=== PATIENT | male | born 1960 | race American Indian/Alaskan Native ===

== ENCOUNTER 2021-10-30 10:13 | Inpatient (IN) | payer MEDICAID ==
--- NOTE | 2021-10-30 11:25 | XRay Report ---
CHEST 1 VIEW 10/30/2021 10:15 AM INDICATION / CLINICAL INFORMATION: Dyspnea. COMPARISON: None available. FINDINGS: SUPPORT DEVICES: None. HEART / MEDIASTINUM: Heart size appears borderline LUNGS / PLEURA: There appear to be a large cavitary lesions in both upper lobes. There is linear scar ring or atelectasis in the mid lungs. The lower lungs are clear. No pleural effusion or pneumothorax. ADDITIONAL FINDINGS: No significant additional findings. IMPRESSION: 1. No acute cardiopulmonary process is appreciated. There appears to be large cavitary lesions in bot h upper lobes as described. The etiology of this is unclear. Consider further evaluation with CT with contrast. Signer Name: Deion Logan Jr, MD Signed: 10/30/2021 11:20 AM Workstation Name: [id number]
[2021-10-30 11:57] LABS: Basophils # (Auto) 0.1 K/mm3 (0.0-0.1); Basophils % (Auto) 0.7 % (0.0-1.8); Eosinophils # (Auto) 0.3 K/mm3 (0.0-0.4); Eosinophils % (Auto) 2.9 % (0.0-4.3); Hematocrit 34.9 % (35.5-45.6); Hemoglobin 11.9 gm/dl (11.8-15.2); Lymphocytes # (Auto) 1.2 K/mm3 (1.2-5.4); Lymphocytes % (Auto) 11.4 % (13.4-35.0); Mean Corpuscular HGB Conc 34 % (32-34); Mean Corpuscular Volume 89 fl (84-94); Monocytes # (Auto) 1.3 K/mm3 (0.0-0.8); Monocytes % (Auto) 11.9 % (0.0-7.3); Red Blood Count 3.94 M/mm3 (3.65-5.03); Red Cell Distribution Width 14.7 % (13.2-15.2)
[2021-10-30 11:59] LABS: Platelet Count 233 K/mm3 (140-440)
[2021-10-30 12:09] LABS: INR 0.97 (0.87-1.13)
[2021-10-30 12:10] LABS: Alanine Aminotransferase 64 units/L (7-56); Albumin 3.6 g/dL (3.9-5); BUN/Creatinine Ratio 14; Blood Urea Nitrogen 15 mg/dL (9-20); Calcium 9.2 mg/dL (8.4-10.2); Hemolysis Index 34
[2021-10-30 13:16] LABS: Creatine Kinase MB < 1.0 ng/mL (0.0-4.0)
[2021-10-30] MEDS ORDERED: cefTRIAXone/NS 1 GM/50 ML 1 GM/50 ML BAG IV ONE (13:35)
[2021-10-30 13:41] LABS: Mucus,Urine FEW /HPF
[2021-10-30 14:01] LABS: Color,Urine Yellow (Yellow)
[2021-10-30 14:02] LABS: Bilirubin,Urine 1+ (Negative); Blood,Urine 1+ (Negative); Ictotest,Urine Negative (Negative)
--- NOTE | 2021-10-30 14:21 | Cat Scan Report ---
CT CHEST WITHOUT CONTRAST INDICATION / CLINICAL INFORMATION: abnormal x ray. TECHNIQUE: Axial CT images were obtained through the chest without contrast. All CT scans at this [facility] ation are performed using CT dose reduction for ALARA by means of automated exposure control. COMPARISON: AP chest performed earlier today FINDINGS: HEART: No significant abnormality. CORONARY ARTERY CALCIFICATION: Present -- Mild. THORACIC AORTA: No significant abnormality. MEDIASTINUM / [place]: There are a few borderline lymph nodes measuring up to 1 cm in short axis in the precarinal region and left hilar region. PLEURA: No pleural effusion. No pneumothorax. LUNGS: CT confirms large cavitary lesions in both upper lobes measuring 9-10 cm in diameter. Upper lo be lung parenchyma is compressed inferiorly. There is no evidence for soft tissue component, internal debris or fluid level. The lower lung zones are adequately aerated with no evidence for acute diseas e, nodule or mass. ADDITIONAL FINDINGS: None. UPPER ABDOMEN: No significant abnormality. SKELETAL SYSTEM: No significant abnormality. IMPRESSION: Large cavitary lesions are identified in both upper lung zones as described. The etiology of these ar e not clearly evident but may be secondary to chronic sequela of previous infectious process such as fungal infection or tuberculosis. Please correlate with the patient's history. No acute inflammatory process is appreciated in the chest. Signer Name: Deion Logan Jr, MD Signed: 10/30/2021 2:17 PM Workstation Name: [id number]
--- NOTE | 2021-10-30 14:50 | Emergency Department Report ---
ED General Adult HPI - General Chief complaint: Upper Respiratory Infection Stated complaint: CHEST PAIN/COUGH PUI?: No Time Seen by Provider: 10/30/21 10:31 Source: patient, EMS Mode of arrival: Stretcher Limitations: No Limitations - History of Present Illness Severity scale (0 -10): 8 - Related Data Allergies Allergy/AdvReac Type Severity Reaction Status Date / Time No Known Allergies Allergy Verified 10/30/21 10:23 ED Review of Systems ROS: Stated complaint: CHEST PAIN/COUGH Other details as noted in HPI Constitutional: denies: chills, fever Eyes: denies: eye pain, eye discharge, vision change ENT: denies: ear pain, throat pain Respiratory: denies: cough, shortness of breath, wheezing Cardiovascular: denies: chest pain, palpitations Endocrine: no symptoms reported Gastrointestinal: denies: abdominal pain, nausea, diarrhea Genitourinary: denies: urgency, dysuria Musculoskeletal: denies: back pain, joint swelling, arthralgia Skin: denies: rash, lesions Neurological: denies: headache, weakness, paresthesias Psychiatric: denies: anxiety, depression Hematological/Lymphatic: denies: easy bleeding, easy bruising ED Past Medical Hx - Past Medical History Previous Medical History?: No Hx Hypertension: No Hx Diabetes: Yes Hx GERD: Yes Hx COPD: Yes Additional medical history: stemi - Surgical History Hx Coronary Stent: Yes - Social History Smoking Status: Former Smoker Substance Use Type: None ED Physical Exam - General Limitations: No Limitations General appearance: alert, in no apparent distress - Head Head exam: Present: atraumatic, normocephalic - Eye Eye exam: Present: normal appearance - ENT ENT exam: Present: mucous membranes moist - Neck Neck exam: Present: normal inspection - Respiratory Respiratory exam: Present: wheezes, decreased breath sounds. Absent: respiratory distress - Cardiovascular Cardiovascular Exam: Present: normal rhythm, tachycardia. Absent: systolic murmur, diastolic murmur, rubs, gallop - GI/Abdominal GI/Abdominal exam: Present: soft, normal bowel sounds - Rectal Rectal exam: Present: deferred - Extremities Exam Extremities exam: Present: normal inspection - Back Exam Back exam: Present: normal inspection - Neurological Exam Neurological exam: Present: alert, oriented X3 - Psychiatric Psychiatric exam: Present: normal affect, normal mood - Skin Skin exam: Present: warm, dry, intact, normal color. Absent: rash ED Course Vital Signs 10/30/21 10/30/21 10/30/21 10:19 10:45 12:48 Temperature 102.6 F H Pulse Rate 116 H 117 H 126 H Respiratory 16 28 H 28 H Rate Blood Pressure 118/74 Blood Pressure 110/64 130/72 128/70 [Left] O2 Sat by Pulse 100 100 Oximetry 10/30/21 14:33 Temperature 100.7 F H Pulse Rate 111 H Respiratory 20 Rate Blood Pressure Blood Pressure 112/70 [Left] O2 Sat by Pulse 100 Oximetry ED Medical Decision Making - Lab Data Result diagrams: 10/30/21 11:31 10/30/21 11:16 - EKG Data -: EKG Interpreted by Me EKG shows normal: sinus rhythm Rate: tachycardia - EKG Data When compared to previous EKG there are: no significant change - Radiology Data Radiology results: report reviewed, image reviewed Critical care attestation.: If time is entered above; I have spent that time in minutes in the direct care of this critically ill patient, excluding procedure time. ED Disposition Clinical Impression: Fever, Pulmonary infection Disposition: 09 ADMITTED INPATIENT Is pt being admited?: Yes Does the pt Need Aspirin: No Condition: Stable Referrals: PRIMARY CARE, [Primary Care Provider] - 3-5 Days
[2021-10-30] MEDS ORDERED: guaiFENesin/CODEINE 100-10MG ORAL LIQD 5 ML PO ONE (18:11)
--- NOTE | 2021-10-30 21:24 | History and Physical Report ---
History of Present Illness Date of examination: 10/30/21 Date of admission: 10/30/2021 Chief complaint: Fever and cough for 2 days History of present illness: 62-year-old with history of diabetes, COPD and GERD and coronary artery disease comes in for fever and cough of 2 days duration. In the emergency room during evaluation patient had bilateral upper pulmonary cavitary lesions. Patient being admitted for bilateral pneumonia and bilateral cavitary lesions and work- up. Shortness of breath present. Cough productive of mucoid sputum. - Past Medical History --Previous Medical History?: No --Hypertension: No --Diabetes: Yes --GERD: Yes --COPD: Yes --Additional medical history: stemi - Surgical History --Coronary Stent: Yes - Social History --Smoking Status: Former Smoker --Substance Use Type: None Review of Systems ROS: Stated complaint: CHEST PAIN/COUGH Other details as noted in HPI Constitutional: denies: chills, fever Eyes: denies: eye pain, eye discharge, vision change ENT: denies: ear pain, throat pain Respiratory: denies: cough, shortness of breath, wheezing Cardiovascular: denies: chest pain, palpitations Endocrine: no symptoms reported Gastrointestinal: denies: abdominal pain, nausea, diarrhea Genitourinary: denies: urgency, dysuria Musculoskeletal: denies: back pain, joint swelling, arthralgia Skin: denies: rash, lesions Neurological: denies: headache, weakness, paresthesias Psychiatric: denies: anxiety, depression Hematological/Lymphatic: denies: easy bleeding, easy bruising Medications and Allergies Allergies Allergy/AdvReac Type Severity Reaction Status Date / Time No Known Allergies Allergy Verified 10/30/21 10:23 Exam - Constitutional Vitals: Temp Pulse Resp BP Pulse Ox 100.2 F H 107 H 19 117/69 100 10/30/21 16:25 10/30/21 18:16 10/30/21 18:16 10/30/21 18:16 10/30/21 18:16 General appearance: Present: no acute distress, well-nourished - EENT Eyes: Present: PERRL ENT: hearing intact, clear oral mucosa - Neck Neck: Present: supple, normal ROM - Respiratory Respiratory effort: normal Respiratory: bilateral: CTA - Cardiovascular Heart rate: 78 Rhythm: regular Heart Sounds: Present: S1 & S2. Absent: rub, click - Extremities Extremities: pulses symmetrical, No edema Peripheral Pulses: within normal limits - Abdominal General gastrointestinal: Present: soft, non-tender, non-distended, normal bowel sounds Male genitourinary: Present: normal - Integumentary Integumentary: Present: clear, warm, dry - Musculoskeletal Musculoskeletal: gait normal, strength equal bilaterally - Psychiatric Psychiatric: appropriate mood/affect, intact judgment & insight - Neurologic Neurologic: CNII-XII intact, moves all extremities HEART Score - HEART Score Troponin: Troponin T < 0.010 ng/mL (0.00-0.029) 10/30/21 11:31 Results - Labs CBC & Chem 7: 10/31/21 04:32 10/31/21 04:32 Labs: Laboratory Last Values WBC 10.9 K/mm3 (4.5-11.0) 10/30/21 11:31 RBC 3.94 M/mm3 (3.65-5.03) 10/30/21 11:31 Hgb 11.9 gm/dl (11.8-15.2) 10/30/21 11:31 Hct 34.9 % (35.5-45.6) L 10/30/21 11:31 MCV 89 fl (84-94) 10/30/21 11:31 MCH 30 pg (28-32) 10/30/21 11:31 MCHC 34 % (32-34) 10/30/21 11:31 RDW 14.7 % (13.2-15.2) 10/30/21 11:31 Plt Count 233 K/mm3 (140-440) 10/30/21 11:31 Lymph % (Auto) 11.4 % (13.4-35.0) L 10/30/21 11:31 [place] % (Auto) 11.9 % (0.0-7.3) H 10/30/21 11:31 Eos % (Auto) 2.9 % (0.0-4.3) 10/30/21 11:31 Baso % (Auto) 0.7 % (0.0-1.8) 10/30/21 11:31 Lymph # (Auto) 1.2 K/mm3 (1.2-5.4) 10/30/21 11:31 [place] # (Auto) 1.3 K/mm3 (0.0-0.8) H 10/30/21 11:31 Eos # (Auto) 0.3 K/mm3 (0.0-0.4) 10/30/21 11:31 Baso # (Auto) 0.1 K/mm3 (0.0-0.1) 10/30/21 11:31 Seg Neutrophils % 73.1 % (40.0-70.0) H 10/30/21 11:31 Seg Neutrophils # 8.0 K/mm3 (1.8-7.7) H 10/30/21 11:31 PT 14.0 Sec. (12.2-14.9) 10/30/21 11:31 INR 0.97 (0.87-1.13) 10/30/21 11:31 Sodium 137 mmol/L (137-145) 10/30/21 11:16 Potassium 4.3 mmol/L (3.6-5.0) 10/30/21 11:16 Chloride 101.3 mmol/L (98-107) 10/30/21 11:16 Carbon Dioxide 23 mmol/L (22-30) 10/30/21 11:16 Anion Gap 17 mmol/L 10/30/21 11:16 BUN 15 mg/dL (9-20) 10/30/21 11:16 Creatinine 1.1 mg/dL (0.8-1.3) 10/30/21 11:16 Estimated GFR > 60 ml/min 10/30/21 11:16 BUN/Creatinine Ratio 14 % 10/30/21 11:16 Glucose 124 mg/dL (75-100) H 10/30/21 11:16 Lactic Acid 0.90 mmol/L (0.7-2.0) 10/30/21 14:43 Calcium 9.2 mg/dL (8.4-10.2) 10/30/21 11:16 Total Bilirubin 0.50 mg/dL (0.1-1.2) 10/30/21 11:16 AST 50 units/L (5-40) H 10/30/21 11:16 ALT 64 units/L (7-56) H 10/30/21 11:16 Alkaline Phosphatase 139 units/L (35-129) H 10/30/21 11:16 Total Creatine Kinase 72 units/L (55-170) 10/30/21 11:31 CK-MB (CK-2) < 1.0 ng/mL (0.0-4.0) 10/30/21 11:31 CK-MB (CK-2) Rel Index 1.3 (0-4) 10/30/21 11:31 Troponin T < 0.010 ng/mL (0.00-0.029) 10/30/21 11:31 Total Protein 7.8 g/dL (6.3-8.2) 10/30/21 11:16 Albumin 3.6 g/dL (3.9-5) L 10/30/21 11:16 Albumin/Globulin Ratio 0.9 % 10/30/21 11:16 Urine Color Yellow (Yellow) 10/30/21 11:18 Urine Turbidity Clear (Clear) 10/30/21 11:18 Urine pH 6.0 (5.0-7.0) 10/30/21 11:18 Ur Specific [place] 1.015 (1.003-1.030) 10/30/21 11:18 Urine Protein 30 mg/dl mg/dL (Negative) 10/30/21 11:18 Urine Glucose (UA) Negative mg/dL (Negative) 10/30/21 11:18 Urine Ketones Negative mg/dL (Negative) 10/30/21 11:18 Urine Blood 1+ (Negative) 10/30/21 11:18 Urine Nitrite 1+ (Negative) 10/30/21 11:18 Ur Reducing Substances Not Reportable 10/30/21 11:18 Urine Bilirubin 1+ (Negative) 10/30/21 11:18 Urine Ictotest Negative (Negative) 10/30/21 11:18 Urine Urobilinogen 0.0 mg/dL (<2.0) 10/30/21 11:18 Ur Leukocyte Esterase Negative (Negative) 10/30/21 11:18 Urine WBC (Auto) 11.0 /HPF (0.0-6.0) H 10/30/21 11:18 Urine RBC (Auto) 2.0 /HPF (0.0-6.0) 10/30/21 11:18 U Epithel Cells (Auto) 3.0 /HPF (0-13.0) 10/30/21 11:18 Urine Mucus Few /HPF 10/30/21 11:18 Microbiology: Microbiology 10/30/21 14:49 Peripheral/Venous Blood Culture - Preliminary Culture in Progress 10/30/21 14:43 Peripheral/Venous Blood Culture - Preliminary Culture in Progress - Imaging and Cardiology Imaging and Cardiology: Chest x-ray Large cavitary lesions in both upper lobes. The etiology of this is unclear. CT of the chest recommended. Chest CT Large cavitary lesions are identified in both upper lung zones as described. The etiology of these are not clearly evident but may be secondary to chronic sequelae of previous infectious process such as fungal infection ocular ecchymosis. Please correlate with the patient's history. No acute intracranial process is appreciated in the chest. Assessment and Plan Advance Directives: Yes (Full code) VTE prophylaxis?: Chemical Plan of care discussed with patient/family: Yes - Patient Problems (1) Bilateral pneumonia Current Visit: Yes Status: Acute Plan to address problem: Patient initiated on IV Zithromax and IV Rocephin Patient has bilateral cavitary lesions TB to be ruled out ID consult requested Sputum for AFB (2) Pulmonary cavitary lesion Current Visit: Yes Status: Acute Plan to address problem: TB and other fungal diseases to be ruled out Patient also has fever ID consult requested Patient to be isolated Sputum for AFB (3) COPD (chronic obstructive pulmonary disease) Current Visit: Yes Status: Chronic Qualifiers: Emphysema type: unspecified Plan to address problem: DuoNebs [id number] and as needed (4) CAD (coronary artery disease) Current Visit: Yes Status: Chronic Qualifiers: Coronary Disease-Associated Artery/Lesion type: red devil artery [place] vs. transplanted heart: red devil heart Plan to address problem: On aspirin and statins (5) GERD (gastroesophageal reflux disease) Current Visit: Yes Status: Chronic Qualifiers: Esophagitis presence: without esophagitis Qualified Code(s): K21.9 - Gastro-esophageal reflux disease without esophagitis Plan to address problem: On PPIs (6) DVT prophylaxis Current Visit: Yes Status: Acute Plan to address problem: On heparin and GI prophylaxis (7) Advance care planning Current Visit: Yes Status: Acute Plan to address problem: Disease education collected, care plan discussed, diagnosis discussed close. Patient acknowledged understanding with care plan. +30 minutes. Patient is full code.
[2021-10-30] MEDS ORDERED: ONDANSETRON 4 MG/2 ML INJ IV PRN (21:31)
[2021-10-30] MEDS ORDERED: ACETAMINOPHEN 325 MG TAB PO PRN (21:31)
[2021-10-30] MEDS ORDERED: MORPHINE 2 MG/1 ML INJ IV PRN (21:33)
[2021-10-30] MEDS ORDERED: IPRATROPIUM/ALBUTEROL SULFATE 3 ML AMPUL.NEB IH PRN (21:34)
[2021-10-30] MEDS ORDERED: ALBUTEROL 2.5 MG/3 ML NEBU IH PRN (21:39)
[2021-10-30] MEDS ORDERED: AZITHROMYCIN/NS 500 MG/250 ML 500 MG/250 ML BAG IV SCH (22:00)
[2021-10-30] MEDS ORDERED: D5W/0.9% NACL 1,000 ML IV SCH (22:00)
[2021-10-30] MEDS: HEPARIN 5,000 UNIT/1 ML VIAL SUB-Q SCH (22:19)
[2021-10-30] MEDS: FAMOTIDINE 20 MG TAB PO SCH (22:20)
[2021-10-31] MEDS: guaiFENesin DM 200/20 MG ORAL LIQD 10 ML PO PRN ×4 (01:54→22:39)
[2021-10-31 05:12] LABS: Hematocrit 33.8 % (35.5-45.6); Hemoglobin 11.1 gm/dl (11.8-15.2); Mean Corpuscular HGB Conc 33 % (32-34); Mean Corpuscular Volume 88 fl (84-94); Platelet Count 265 K/mm3 (140-440); Red Blood Count 3.85 M/mm3 (3.65-5.03); Red Cell Distribution Width 14.8 % (13.2-15.2)
[2021-10-31 05:28] LABS: Alanine Aminotransferase 48 units/L (7-56); Albumin 3.5 g/dL (3.9-5); BUN/Creatinine Ratio 16; Blood Urea Nitrogen 14 mg/dL (9-20); Calcium 8.5 mg/dL (8.4-10.2); Hemolysis Index 2
[2021-10-31 05:52] LABS: Basophils % (Manual) 0 % (0.0-1.8); Total Cells Counted 100
[2021-10-31 05:53] LABS: Platelet Estimate Consistent w Auto
[2021-10-31] MEDS: IPRATROPIUM/ALBUTEROL SULFATE 3 ML AMPUL.NEB IH SCH ×4 (08:22→20:19)
--- NOTE | 2021-10-31 08:56 | Electrocardiograph Report ---
[facility] Test Date: 2021-10-30 Test Time: 12:15:38 Pat Name: JANES ARECHIGA Department: Room: A374 1 Gender: M Vp Home Health: NURSE : 1960 Requested By: KIANNA PRINCE Order Number: [id number] Reading MD: Nash Covarrubias Measurements Intervals [place] Rate: 120 P: 45 NC: 153 QRS: 69 QRSD: 78 T: -56 QT: 288 QTc: 407 Interpretive Statements Sinus tachycardia Borderline T abnormalities, diffuse leads No previous ECG available for comparison Electronically Signed On 10-31-2021 8:55:45 EDT by Nash Covarrubias
[2021-10-31] MEDS: FAMOTIDINE 20 MG TAB PO SCH ×2 (09:31→22:39)
[2021-10-31] MEDS: HEPARIN 5,000 UNIT/1 ML VIAL SUB-Q SCH ×2 (09:31→22:39)
[2021-10-31] MEDS ORDERED: cefTRIAXone/NS 2 GM/100 ML 2 GM/100 ML BAG IV SCH (10:00)
--- NOTE | 2021-10-31 10:05 | Progress Note ---
Assessment and Plan Assessment and plan: -- Bilateral pneumonia/community-acquired POA Patient initiated on IV Zithromax and IV Rocephin Patient has bilateral cavitary lesions ID pulmonary evaluated the patient Patient is placed in airborne isolation AFB cultures, AFB smears, gold interferon Test pending, follow cultures --Pulmonary cavitary lesion TB and other fungal diseases to be ruled out Patient also has fever, ID following Airborne isolation, follow AFB testing --COPD (chronic obstructive pulmonary disease) DuoNebs [id number] and as needed -- History of CAD (coronary artery disease) Continue home cardiac medications On aspirin and statins --GERD (gastroesophageal reflux disease) Continue PPI --Full CODE STATUS -DVT prophylaxis On heparin and GI prophylaxis --Advance care planning Disease education collected, care plan discussed, diagnosis discussed close. Patient acknowledged understanding with care plan. +30 minutes. Patient is full code. Plan of care discussed with the patient, he has many questions Answered all of them History Interval history: I have seen and examined the patient at the bedside Patient's chart and medications reviewed Patient was admitted with pneumonia and cavitary lesion Placed in airborne isolation for AFB testing, ID and pulmonary following Patient complains of some vague chest discomfort and mild shortness of breath Denies nausea vomiting vital signs noted Hospitalist Physical - Constitutional Vitals: Temp Pulse Resp BP Pulse Ox 98.6 F 103 H 20 107/71 96 10/31/21 04:47 10/31/21 08:23 10/31/21 08:23 10/31/21 04:47 10/31/21 08:23 General appearance: Present: no acute distress, well-nourished - EENT Eyes: Present: PERRL, EOM intact - Neck Neck: Present: supple, normal ROM - Respiratory Respiratory effort: normal Respiratory: bilateral: diminished, rhonchi, negative: rales, wheezing - Cardiovascular Rhythm: regular Heart Sounds: Present: S1 & S2 - Extremities Extremities: no ischemia, No edema Peripheral Pulses: within normal limits - Abdominal General gastrointestinal: soft, non-tender, non-distended, normal bowel sounds - Integumentary Integumentary: Present: clear, warm - Psychiatric Psychiatric: appropriate mood/affect, cooperative - Neurologic Neurologic: CNII-XII intact, moves all extremities HEART Score - HEART Score Troponin: Troponin T < 0.010 ng/mL (0.00-0.029) 10/30/21 11:31 Results - Labs CBC & Chem 7: 10/31/21 04:32 10/31/21 04:32 Labs: Laboratory Last Values WBC 7.9 K/mm3 (4.5-11.0) 10/31/21 04:32 RBC 3.85 M/mm3 (3.65-5.03) 10/31/21 04:32 Hgb 11.1 gm/dl (11.8-15.2) L 10/31/21 04:32 Hct 33.8 % (35.5-45.6) L 10/31/21 04:32 MCV 88 fl (84-94) 10/31/21 04:32 MCH 29 pg (28-32) 10/31/21 04:32 MCHC 33 % (32-34) 10/31/21 04:32 RDW 14.8 % (13.2-15.2) 10/31/21 04:32 Plt Count 265 K/mm3 (140-440) 10/31/21 04:32 Lymph % (Auto) 11.4 % (13.4-35.0) L 10/30/21 11:31 [place] % (Auto) Freezing Machine Operator 10/31/21 04:32 Eos % (Auto) 2.9 % (0.0-4.3) 10/30/21 11:31 Baso % (Auto) 0.7 % (0.0-1.8) 10/30/21 11:31 Lymph # (Auto) 1.2 K/mm3 (1.2-5.4) 10/30/21 11:31 [place] # (Auto) 1.3 K/mm3 (0.0-0.8) H 10/30/21 11:31 Eos # (Auto) 0.3 K/mm3 (0.0-0.4) 10/30/21 11:31 Baso # (Auto) 0.1 K/mm3 (0.0-0.1) 10/30/21 11:31 Add Manual Diff Complete 10/31/21 04:32 Total Counted 100 10/31/21 04:32 Seg Neutrophils % 73.1 % (40.0-70.0) H 10/30/21 11:31 Seg Neuts % (Manual) 72.0 % (40.0-70.0) H 10/31/21 04:32 Band Neutrophils % 0 % 10/31/21 04:32 Lymphocytes % (Manual) 15.0 % (13.4-35.0) 10/31/21 04:32 Reactive Lymphs % (Man) 0 % 10/31/21 04:32 Monocytes % (Manual) 12.0 % (0.0-7.3) H 10/31/21 04:32 Eosinophils % (Manual) 1.0 % (0.0-4.3) 10/31/21 04:32 Basophils % (Manual) 0 % (0.0-1.8) 10/31/21 04:32 Metamyelocytes % 0 % 10/31/21 04:32 Myelocytes % 0 % 10/31/21 04:32 Promyelocytes % 0 % 10/31/21 04:32 Blast Cells % 0 % 10/31/21 04:32 Nucleated RBC % Not Reportable 10/31/21 04:32 Seg Neutrophils # 8.0 K/mm3 (1.8-7.7) H 10/30/21 11:31 Seg Neutrophils # Man 5.7 K/mm3 (1.8-7.7) 10/31/21 04:32 Band Neutrophils # 0.0 K/mm3 10/31/21 04:32 Lymphocytes # (Manual) 1.2 K/mm3 (1.2-5.4) 10/31/21 04:32 Abs React Lymphs (Man) 0.0 K/mm3 10/31/21 04:32 Monocytes # (Manual) 0.9 K/mm3 (0.0-0.8) H 10/31/21 04:32 Eosinophils # (Manual) 0.1 K/mm3 (0.0-0.4) 10/31/21 04:32 Basophils # (Manual) 0.0 K/mm3 (0.0-0.1) 10/31/21 04:32 Metamyelocytes # 0.0 K/mm3 10/31/21 04:32 Myelocytes # 0.0 K/mm3 10/31/21 04:32 Promyelocytes # 0.0 K/mm3 10/31/21 04:32 Blast Cells # 0.0 K/mm3 10/31/21 04:32 WBC Morphology Not Reportable 10/31/21 04:32 Hypersegmented Neuts Not Reportable 10/31/21 04:32 Hyposegmented Neuts Not Reportable 10/31/21 04:32 Hypogranular Neuts Not Reportable 10/31/21 04:32 Smudge Cells Not Reportable 10/31/21 04:32 Toxic Granulation Not Reportable 10/31/21 04:32 Toxic Vacuolation Not Reportable 10/31/21 04:32 Dohle Bodies Not Reportable 10/31/21 04:32 Pelger-Huet Anomaly Not Reportable 10/31/21 04:32 Kristian Rods Not Reportable 10/31/21 04:32 Platelet Estimate Consistent w auto 10/31/21 04:32 Clumped Platelets Not Reportable 10/31/21 04:32 Plt Clumps, EDTA Not Reportable 10/31/21 04:32 Large Platelets Not Reportable 10/31/21 04:32 Giant Platelets Not Reportable 10/31/21 04:32 Platelet Satelliting Not Reportable 10/31/21 04:32 Plt Morphology Comment Not Reportable 10/31/21 04:32 RBC Morphology Not Reportable 10/31/21 04:32 Dimorphic RBCs Not Reportable 10/31/21 04:32 Polychromasia Not Reportable 10/31/21 04:32 Hypochromasia Not Reportable 10/31/21 04:32 Poikilocytosis Not Reportable 10/31/21 04:32 Anisocytosis Not Reportable 10/31/21 04:32 Microcytosis Not Reportable 10/31/21 04:32 Macrocytosis Not Reportable 10/31/21 04:32 Spherocytes Not Reportable 10/31/21 04:32 Pappenheimer Bodies Not Reportable 10/31/21 04:32 Sickle Cells Not Reportable 10/31/21 04:32 Target Cells Not Reportable 10/31/21 04:32 Tear Drop Cells Not Reportable 10/31/21 04:32 Ovalocytes Not Reportable 10/31/21 04:32 Helmet Cells Not Reportable 10/31/21 04:32 [place] Bodies Not Reportable 10/31/21 04:32 [place] Rings Not Reportable 10/31/21 04:32 [place] Cells Not Reportable 10/31/21 04:32 Bite Cells Not Reportable 10/31/21 04:32 Crenated Cell Not Reportable 10/31/21 04:32 Elliptocytes Not Reportable 10/31/21 04:32 Acanthocytes (Spur) Not Reportable 10/31/21 04:32 Rouleaux Not Reportable 10/31/21 04:32 Hemoglobin C Crystals Not Reportable 10/31/21 04:32 Schistocytes Not Reportable 10/31/21 04:32 Malaria parasites Not Reportable 10/31/21 04:32 Nic Bodies Not Reportable 10/31/21 04:32 Hem Pathologist Commnt No 10/31/21 04:32 PT 14.0 Sec. (12.2-14.9) 10/30/21 11:31 INR 0.97 (0.87-1.13) 10/30/21 11:31 Sodium 136 mmol/L (137-145) L 10/31/21 04:32 Potassium 4.2 mmol/L (3.6-5.0) 10/31/21 04:32 Chloride 99.5 mmol/L (98-107) 10/31/21 04:32 Carbon Dioxide 22 mmol/L (22-30) 10/31/21 04:32 Anion Gap 19 mmol/L 10/31/21 04:32 BUN 14 mg/dL (9-20) 10/31/21 04:32 Creatinine 0.9 mg/dL (0.8-1.3) 10/31/21 04:32 Estimated GFR > 60 ml/min 10/31/21 04:32 BUN/Creatinine Ratio 16 % 10/31/21 04:32 Glucose 123 mg/dL (75-100) H 10/31/21 04:32 Lactic Acid 0.90 mmol/L (0.7-2.0) 10/30/21 14:43 Calcium 8.5 mg/dL (8.4-10.2) 10/31/21 04:32 Total Bilirubin 0.40 mg/dL (0.1-1.2) 10/31/21 04:32 AST 36 units/L (5-40) 10/31/21 04:32 ALT 48 units/L (7-56) 10/31/21 04:32 Alkaline Phosphatase 138 units/L (35-129) H 10/31/21 04:32 Ammonia 21.0 umol/L (25-60) L 10/30/21 21:49 Total Creatine Kinase 72 units/L (55-170) 10/30/21 11:31 CK-MB (CK-2) < 1.0 ng/mL (0.0-4.0) 10/30/21 11:31 CK-MB (CK-2) Rel Index 1.3 (0-4) 10/30/21 11:31 Troponin T < 0.010 ng/mL (0.00-0.029) 10/30/21 11:31 Total Protein 7.7 g/dL (6.3-8.2) 10/31/21 04:32 Albumin 3.5 g/dL (3.9-5) L 10/31/21 04:32 Albumin/Globulin Ratio 0.8 % 10/31/21 04:32 Urine Color Yellow (Yellow) 10/30/21 11:18 Urine Turbidity Clear (Clear) 10/30/21 11:18 Urine pH 6.0 (5.0-7.0) 10/30/21 11:18 Ur Specific [place] 1.015 (1.003-1.030) 10/30/21 11:18 Urine Protein 30 mg/dl mg/dL (Negative) 10/30/21 11:18 Urine Glucose (UA) Negative mg/dL (Negative) 10/30/21 11:18 Urine Ketones Negative mg/dL (Negative) 10/30/21 11:18 Urine Blood 1+ (Negative) 10/30/21 11:18 Urine Nitrite 1+ (Negative) 10/30/21 11:18 Ur Reducing Substances Not Reportable 10/30/21 11:18 Urine Bilirubin 1+ (Negative) 10/30/21 11:18 Urine Ictotest Negative (Negative) 10/30/21 11:18 Urine Urobilinogen 0.0 mg/dL (<2.0) 10/30/21 11:18 Ur Leukocyte Esterase Negative (Negative) 10/30/21 11:18 Urine WBC (Auto) 11.0 /HPF (0.0-6.0) H 10/30/21 11:18 Urine RBC (Auto) 2.0 /HPF (0.0-6.0) 10/30/21 11:18 U Epithel Cells (Auto) 3.0 /HPF (0-13.0) 10/30/21 11:18 Urine Mucus Few /HPF 10/30/21 11:18 Microbiology: Microbiology 10/30/21 14:49 Peripheral/Venous Blood Culture - Preliminary Culture in Progress 10/30/21 14:43 Peripheral/Venous Blood Culture - Preliminary Culture in Progress Cruz/IV: Voiding Method Urinal Active Medications - Current Medications Current Medications: Generic Name Dose Route Start Last Admin Trade Name Freq PRN Reason Stop Dose Admin Acetaminophen 650 mg 10/30/21 21:31 Acetaminophen 325 Mg Tab PO Q4H PRN Pain MILD(1-3)/Fever >100.5/MCDERMOTT Albuterol 2.5 mg 10/30/21 21:39 10/30/21 23:50 Albuterol 2.5 Mg/3 Ml Nebu IH 2.5 mg Q3HRT PRN Administration Wheezing Albuterol/Ipratropium 1 ampul 10/31/21 08:00 10/31/21 08:22 Ipratropium/Albuterol Sulfate 3 Ml Ampul.Neb IH 1 ampul QIDRT JAYLA Administration Famotidine 20 mg 10/30/21 22:00 10/31/21 09:31 Famotidine 20 Mg Tab PO 20 mg BID JAYLA Administration Guaifenesin 10 ml 10/31/21 01:11 10/31/21 05:44 Guaifenesin Dm 200/20 Mg Oral Liqd 10 Ml PO 10 ml Q4H PRN Administration Cough Heparin Sodium (Porcine) 5,000 unit 10/30/21 22:00 10/31/21 09:31 Heparin 5,000 Unit/1 Ml Vial SUB-Q 5,000 unit Q12HR JAYLA Administration Dextrose/Sodium Chloride 1,000 mls @ 75 mls/hr 10/30/21 22:00 10/31/21 05:45 D5ns IV 10/31/21 11:00 75 mls/hr DIRECT JAYLA Administration Azithromycin 500 mg in 250 mls @ 250 mls/hr 10/30/21 22:00 10/30/21 22:20 Zithromax/Ns IV 250 mls/hr Q24H JAYLA Administration Ceftriaxone Sodium 2 gm in 100 mls @ 200 mls/hr 10/31/21 10:00 10/31/21 09:31 Rocephin/Ns 2 Gm/100 Ml IV 200 mls/hr Q24HR JAYLA Administration Protocol Morphine Sulfate 2 mg 10/30/21 21:33 10/30/21 22:20 Morphine 2 Mg/1 Ml Inj IV 2 mg Q4H PRN Administration Pain, Moderate (4-6) Ondansetron HCl 4 mg 10/30/21 21:31 Ondansetron 4 Mg/2 Ml Inj IV Q8H PRN Nausea And Vomiting Oxycodone/Acetaminophen 1 tab 10/30/21 21:33 Oxycodone /Acetaminophen 5-325mg Tab PO Q6H PRN Pain, Moderate (4-6) Sodium Chloride 10 ml 10/30/21 22:00 10/31/21 09:32 Sodium Chloride 0.9% 10 Ml Flush Syringe IV 10 ml BID JAYLA Administration Sodium Chloride 10 ml 10/30/21 21:31 Sodium Chloride 0.9% 10 Ml Flush Syringe IV PRN PRN LINE FLUSH
--- NOTE | 2021-10-31 10:26 | Consultation ---
History of Present Illness - Reason for Consult Consult date: 10/31/21 b/l cavitary lesions in lungs Requesting physician: BEVERLEY LACY - History of Present Illness The patient is a 61-year-old male with COPD, diabetes, GERD, chronic respiratory failure requiring home oxygen was admitted to the hospital with complaints of fever and cough going on for about 2 days. Upon evaluation in the ER, noted to have a fever, chest x-ray showed bilateral upper lobe cavitary lesions, hence ID was consulted. Cough with copious sputum production. Patient states he usually gets admitted to [facility], his pulmonary doctor is also there. Last hospitalization was about 8 months ago, he knows he has prior lung damage but has never been told he had cavitary lung lesions. He lives in a correction, thinks his previous TB skin tests have been negative. Remote incarceration for a short duration less than 2 weeks, never been homeless. Denies any known exposure to TB. Denies any substance abuse at this time. Quit smoking many years ago. Review of Systems: General: Fever HEENT: no new visual disturbance Respiratory: Cough, chest pain, shortness of breath Cardiovascular: No chest pain, syncope Gastrointestinal: No nausea, vomiting or diarrhea Genitourinary: No dysuria or hematuria Musculoskeletal: No new or worsening neck pain or back pain Neurologic: No headaches, seizures Hematologic: No easy bruising or bleeding Endocrine: No night sweats or acute weight loss Skin: negative for rash, jaundice Psychiatric: No suicidal or homicidal ideation Medications and Allergies Allergies Allergy/AdvReac Type Severity Reaction Status Date / Time No Known Allergies Allergy Verified 10/30/21 10:23 Active Meds: Active Medications Acetaminophen (Acetaminophen 325 Mg Tab) 650 mg PO Q4H PRN PRN Reason: Pain MILD(1-3)/Fever >100.5/MCDERMOTT Albuterol (Albuterol 2.5 Mg/3 Ml Nebu) 2.5 mg IH Q3HRT PRN PRN Reason: Wheezing Last Admin: 10/30/21 23:50 Dose: 2.5 mg Albuterol/Ipratropium (Ipratropium/Albuterol Sulfate 3 Ml Ampul.Neb) 1 ampul IH QIDRT [facility] Last Admin: 10/31/21 08:22 Dose: 1 ampul Famotidine (Famotidine 20 Mg Tab) 20 mg PO BID [facility] Last Admin: 10/31/21 09:31 Dose: 20 mg Guaifenesin (Guaifenesin Dm 200/20 Mg Oral Liqd 10 Ml) 10 ml PO Q4H PRN PRN Reason: Cough Last Admin: 10/31/21 05:44 Dose: 10 ml Heparin Sodium (Porcine) (Heparin 5,000 Unit/1 Ml Vial) 5,000 unit SUB-Q Q12HR [facility] Last Admin: 10/31/21 09:31 Dose: 5,000 unit Dextrose/Sodium Chloride (D5ns) 1,000 mls @ 75 mls/hr IV DIRECT JAYLA Stop: 10/31/21 11:00 Last Admin: 10/31/21 05:45 Dose: 75 mls/hr Azithromycin (Zithromax/Ns) 500 mg in 250 mls @ 250 mls/hr IV Q24H JAYLA Last Admin: 10/30/21 22:20 Dose: 250 mls/hr Ceftriaxone Sodium (Rocephin/Ns 2 Gm/100 Ml) 2 gm in 100 mls @ 200 mls/hr IV Q24HR JAYLA; Protocol Last Admin: 10/31/21 09:31 Dose: 200 mls/hr Morphine Sulfate (Morphine 2 Mg/1 Ml Inj) 2 mg IV Q4H PRN PRN Reason: Pain, Moderate (4-6) Last Admin: 10/30/21 22:20 Dose: 2 mg Ondansetron HCl (Ondansetron 4 Mg/2 Ml Inj) 4 mg IV Q8H PRN PRN Reason: Nausea And Vomiting Oxycodone/Acetaminophen (Oxycodone /Acetaminophen 5-325mg Tab) 1 tab PO Q6H PRN PRN Reason: Pain, Moderate (4-6) Sodium Chloride (Sodium Chloride 0.9% 10 Ml Flush Syringe) 10 ml IV BID [facility] Last Admin: 10/31/21 09:32 Dose: 10 ml Sodium Chloride (Sodium Chloride 0.9% 10 Ml Flush Syringe) 10 ml IV PRN PRN PRN Reason: LINE FLUSH Physical Examination - Physical Exam Narrative exam: Physical Exam: Constitutional: Alert, cooperative. No acute distress Head, Ears, Nose: Normocephalic, atraumatic. External ears, nose normal Eyes: Conjunctivae/corneas clear. No icterus. No ptosis. Neck: Supple, no meningeal signs Cardiovascular: S1, S2 + Respiratory: Good air entry, clear to auscultation bilaterally GI: Soft, non-tender; bowel sounds normal. No peritoneal signs Musculoskeletal: No pedal edema, no cyanosis. Skin: No rash or abscess Hem/Lymphatic: No palpable cervical or supraclavicular nodes. No lymphangitis Psych: Mood ok. Affect normal Neurological: Awake, alert, oriented. No gross abnormality - Constitutional Vitals: Vital Signs Temp Pulse Resp BP Pulse Ox 98.6 F 103 H 20 107/71 96 10/31/21 04:47 10/31/21 08:23 10/31/21 08:23 10/31/21 04:47 10/31/21 08:23 Temperature -Last 24 Hours Temperature 98.6 F Temperature 99.3 F Temperature 100.2 F Temperature 100.7 F Temperature 102.6 F Temperature 102.6 F Results - Labs CBC & Chem 7: 10/31/21 04:32 10/31/21 04:32 Labs: Abnormal lab results 10/30/21 10/30/21 10/30/21 Range/Units 11:16 11:18 11:31 Hgb (11.8-15.2) gm/dl Hct 34.9 L (35.5-45.6) % Lymph % (Auto) 11.4 L (13.4-35.0) % [place] % (Auto) 11.9 H (0.0-7.3) % [place] # (Auto) 1.3 H (0.0-0.8) K/mm3 Seg Neutrophils % 73.1 H (40.0-70.0) % Seg Neuts % (Manual) (40.0-70.0) % Monocytes % (Manual) (0.0-7.3) % Seg Neutrophils # 8.0 H (1.8-7.7) K/mm3 Monocytes # (Manual) (0.0-0.8) K/mm3 Sodium (137-145) mmol/L Glucose 124 H (75-100) mg/dL AST 50 H (5-40) units/L ALT 64 H (7-56) units/L Alkaline Phosphatase 139 H (35-129) units/L Ammonia (25-60) umol/L Albumin 3.6 L (3.9-5) g/dL Urine WBC (Auto) 11.0 H (0.0-6.0) /HPF 10/30/21 10/31/21 10/31/21 Range/Units 21:49 04:32 04:32 Hgb 11.1 L (11.8-15.2) gm/dl Hct 33.8 L (35.5-45.6) % Lymph % (Auto) (13.4-35.0) % [place] % (Auto) (0.0-7.3) % [place] # (Auto) (0.0-0.8) K/mm3 Seg Neutrophils % (40.0-70.0) % Seg Neuts % (Manual) 72.0 H (40.0-70.0) % Monocytes % (Manual) 12.0 H (0.0-7.3) % Seg Neutrophils # (1.8-7.7) K/mm3 Monocytes # (Manual) 0.9 H (0.0-0.8) K/mm3 Sodium 136 L (137-145) mmol/L Glucose 123 H (75-100) mg/dL AST (5-40) units/L ALT (7-56) units/L Alkaline Phosphatase 138 H (35-129) units/L Ammonia 21.0 L (25-60) umol/L Albumin 3.5 L (3.9-5) g/dL Urine WBC (Auto) (0.0-6.0) /HPF - Imaging and Cardiology Chest x-ray: report reviewed, image reviewed (b/l upper lobe cavitary lesion) Assessment and Plan Cultures: 10/30/2021 blood culture: In process A/P: 61-year-old male with COPD, diabetes, GERD, chronic respiratory failure requiring home oxygen was admitted to the hospital with complaints of fever and cough going on for about 2 days: #Bilateral upper lobe cavitary pneumonia: usually gets admitted to [place], his pulmonary doctor is also there. Last hospitalization was about 8 months ago, he knows he has prior lung damage but has never been told he had cavitary lung lesions. He lives in a correction, thinks his previous TB skin tests have been negative. Remote incarceration for a short duration less than 2 weeks, never been homeless. Denies any known exposure to TB. Denies any substance abuse at this time. Quit smoking many years ago. #COPD with chronic respiratory failure, on home oxygen Recs: -Sputum culture STAT -AFB x 3, TB QuantiFERON gold ordered -Empiric cefepime, vancomycin given underlying structural lung disease -Airborne isolation for now Glenn Matson MD, FACP, [facility] ([facility] O: [phone] F: [phone] C: [phone]
[2021-10-31] MEDS ORDERED: VANCOMYCIN 1,000 MG in SODIUM CHLORIDE 0.9% 500 ML 500 ML IV ONE (10:28)
[2021-10-31] MEDS ORDERED: VANCOMYCIN PHARMACY TO DOSE IV SCH (11:00)
[2021-10-31] MEDS ORDERED: VANCOMYCIN 1,500 MG in SODIUM CHLORIDE 0.9% 500 ML 500 ML IV ONE (12:00)
[2021-10-31] MEDS: CEFEPIME/NS 2 GM/100 ML 2 GM/100 ML BAG IV SCH ×2 (13:00→22:39)
[2021-10-31] MEDS: oxyCODONE /ACETAMINOPHEN 5-325MG TAB PO PRN (13:16)
--- NOTE | 2021-10-31 14:08 | Event Note ---
Date: 10/31/21 Chart reviewed. Suggest the following: Obtain [facility] records including imaging. My guess is this is old/chronic given his stability and minimal oxygen requirement. Likely superimposed infection on top of chronic upper lobe lung disease with volume loss on left. Obtain [facility] records from Pulm if possible No objection to abx therapy per ID Sputum sample needs to be obtained before abx administration if possible Agree with isolation.
[2021-11-01] MEDS: VANCOMYCIN 1,250 MG in SODIUM CHLORIDE 0.9% 250ML 250 ML IV SCH ×2 (07:37→18:12)
[2021-11-01] MEDS: IPRATROPIUM/ALBUTEROL SULFATE 3 ML AMPUL.NEB IH SCH ×3 (09:06→19:27)
[2021-11-01] MEDS: CEFEPIME/NS 2 GM/100 ML 2 GM/100 ML BAG IV SCH ×3 (09:15→21:54)
[2021-11-01] MEDS: FAMOTIDINE 20 MG TAB PO SCH ×2 (09:15→21:36)
[2021-11-01] MEDS: guaiFENesin DM 200/20 MG ORAL LIQD 10 ML PO PRN (09:15)
[2021-11-01] MEDS: HEPARIN 5,000 UNIT/1 ML VIAL SUB-Q SCH ×2 (09:15→21:35)
--- NOTE | 2021-11-01 09:19 | Progress Note ---
Assessment and Plan Assessment and plan: Follow kebede PCR test Follow AFP smears, cultures and gold interferon test -- Bilateral pneumonia/community-acquired POA Patient initiated on IV Zithromax and IV Rocephin Patient has bilateral cavitary lesions ID pulmonary evaluated the patient Patient is placed in airborne isolation AFB cultures, AFB smears, gold interferon Test pending, follow cultures --Pulmonary cavitary lesion TB and other fungal diseases to be ruled out Patient also has fever, ID following Airborne isolation, follow AFB testing --COPD (chronic obstructive pulmonary disease) DuoNebs [id number] and as needed --CAD (coronary artery disease) Continue aspirin and statins --GERD (gastroesophageal reflux disease) Continue PPIs --DVT prophylaxis On heparin and GI prophylaxis -- Advance care planning Disease education collected, care plan discussed, diagnosis discussed close. Patient acknowledged understanding with care plan. +30 minutes. Patient is full code. 11/01/2021; patient feels slightly better still has chest congestion and cough Patient is already on cefepime recommended by ID Follow cultures, follow AFB studies reports, follow kebede PCR test Closely monitor the patient and adjust management as needed Plan of care reviewed with the patient and his nurse History Interval history: Seen and examined the patient at the bedside this morning in airborne isolation room Strict contact isolation PPE protocol strictly followed, AFP cultures and smears are pending Patient complains of some cough and shortness of breath as well as nasal congestion Patient requestS cough medicine and nasal spray COVID test was sent Patient is on 3 L of nasal cannula oxygen Vital signs reviewed Hospitalist Physical - Constitutional Vitals: Temp Pulse Resp BP Pulse Ox 99.4 F 94 H 20 111/69 97 11/01/21 05:27 11/01/21 05:27 11/01/21 05:27 11/01/21 05:27 11/01/21 05:27 General appearance: Present: no acute distress, well-nourished - EENT Eyes: Present: PERRL, EOM intact - Neck Neck: Present: supple, normal ROM - Respiratory Respiratory effort: normal Respiratory: bilateral: diminished, negative: rales, rhonchi, wheezing, other - Cardiovascular Rhythm: regular Heart Sounds: Present: S1 & S2 - Extremities Extremities: no ischemia, No edema - Abdominal General gastrointestinal: soft, non-tender, non-distended, normal bowel sounds - Integumentary Integumentary: Present: clear, warm - Psychiatric Psychiatric: appropriate mood/affect, cooperative - Neurologic Neurologic: CNII-XII intact, moves all extremities HEART Score - HEART Score Troponin: Troponin T < 0.010 ng/mL (0.00-0.029) 10/30/21 11:31 Results - Labs CBC & Chem 7: 10/31/21 04:32 10/31/21 04:32 Labs: Laboratory Last Values WBC 7.9 K/mm3 (4.5-11.0) 10/31/21 04:32 RBC 3.85 M/mm3 (3.65-5.03) 10/31/21 04:32 Hgb 11.1 gm/dl (11.8-15.2) L 10/31/21 04:32 Hct 33.8 % (35.5-45.6) L 10/31/21 04:32 MCV 88 fl (84-94) 10/31/21 04:32 MCH 29 pg (28-32) 10/31/21 04:32 MCHC 33 % (32-34) 10/31/21 04:32 RDW 14.8 % (13.2-15.2) 10/31/21 04:32 Plt Count 265 K/mm3 (140-440) 10/31/21 04:32 Lymph % (Auto) 11.4 % (13.4-35.0) L 10/30/21 11:31 [place] % (Auto) [employer]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 10/31/21 04:32 Eos % (Auto) 2.9 % (0.0-4.3) 10/30/21 11:31 Baso % (Auto) 0.7 % (0.0-1.8) 10/30/21 11:31 Lymph # (Auto) 1.2 K/mm3 (1.2-5.4) 10/30/21 11:31 [place] # (Auto) 1.3 K/mm3 (0.0-0.8) H 10/30/21 11:31 Eos # (Auto) 0.3 K/mm3 (0.0-0.4) 10/30/21 11:31 Baso # (Auto) 0.1 K/mm3 (0.0-0.1) 10/30/21 11:31 Add Manual Diff Complete 10/31/21 04:32 Total Counted 100 10/31/21 04:32 Seg Neutrophils % 73.1 % (40.0-70.0) H 10/30/21 11:31 Seg Neuts % (Manual) 72.0 % (40.0-70.0) H 10/31/21 04:32 Band Neutrophils % 0 % 10/31/21 04:32 Lymphocytes % (Manual) 15.0 % (13.4-35.0) 10/31/21 04:32 Reactive Lymphs % (Man) 0 % 10/31/21 04:32 Monocytes % (Manual) 12.0 % (0.0-7.3) H 10/31/21 04:32 Eosinophils % (Manual) 1.0 % (0.0-4.3) 10/31/21 04:32 Basophils % (Manual) 0 % (0.0-1.8) 10/31/21 04:32 Metamyelocytes % 0 % 10/31/21 04:32 Myelocytes % 0 % 10/31/21 04:32 Promyelocytes % 0 % 10/31/21 04:32 Blast Cells % 0 % 10/31/21 04:32 Nucleated RBC % Not Reportable 10/31/21 04:32 Seg Neutrophils # 8.0 K/mm3 (1.8-7.7) H 10/30/21 11:31 Seg Neutrophils # Man 5.7 K/mm3 (1.8-7.7) 10/31/21 04:32 Band Neutrophils # 0.0 K/mm3 10/31/21 04:32 Lymphocytes # (Manual) 1.2 K/mm3 (1.2-5.4) 10/31/21 04:32 Abs React Lymphs (Man) 0.0 K/mm3 10/31/21 04:32 Monocytes # (Manual) 0.9 K/mm3 (0.0-0.8) H 10/31/21 04:32 Eosinophils # (Manual) 0.1 K/mm3 (0.0-0.4) 10/31/21 04:32 Basophils # (Manual) 0.0 K/mm3 (0.0-0.1) 10/31/21 04:32 Metamyelocytes # 0.0 K/mm3 10/31/21 04:32 Myelocytes # 0.0 K/mm3 10/31/21 04:32 Promyelocytes # 0.0 K/mm3 10/31/21 04:32 Blast Cells # 0.0 K/mm3 10/31/21 04:32 WBC Morphology Not Reportable 10/31/21 04:32 Hypersegmented Neuts Not Reportable 10/31/21 04:32 Hyposegmented Neuts Not Reportable 10/31/21 04:32 Hypogranular Neuts Not Reportable 10/31/21 04:32 Smudge Cells Not Reportable 10/31/21 04:32 Toxic Granulation Not Reportable 10/31/21 04:32 Toxic Vacuolation Not Reportable 10/31/21 04:32 Dohle Bodies Not Reportable 10/31/21 04:32 Pelger-Huet Anomaly Not Reportable 10/31/21 04:32 Kristian Rods Not Reportable 10/31/21 04:32 Platelet Estimate Consistent w auto 10/31/21 04:32 Clumped Platelets Not Reportable 10/31/21 04:32 Plt Clumps, EDTA Not Reportable 10/31/21 04:32 Large Platelets Not Reportable 10/31/21 04:32 Giant Platelets Not Reportable 10/31/21 04:32 Platelet Satelliting Not Reportable 10/31/21 04:32 Plt Morphology Comment Not Reportable 10/31/21 04:32 RBC Morphology Not Reportable 10/31/21 04:32 Dimorphic RBCs Not Reportable 10/31/21 04:32 Polychromasia Not Reportable 10/31/21 04:32 Hypochromasia Not Reportable 10/31/21 04:32 Poikilocytosis Not Reportable 10/31/21 04:32 Anisocytosis Not Reportable 10/31/21 04:32 Microcytosis Not Reportable 10/31/21 04:32 Macrocytosis Not Reportable 10/31/21 04:32 Spherocytes Not Reportable 10/31/21 04:32 Pappenheimer Bodies Not Reportable 10/31/21 04:32 Sickle Cells Not Reportable 10/31/21 04:32 Target Cells Not Reportable 10/31/21 04:32 Tear Drop Cells Not Reportable 10/31/21 04:32 Ovalocytes Not Reportable 10/31/21 04:32 Helmet Cells Not Reportable 10/31/21 04:32 [place] Bodies Not Reportable 10/31/21 04:32 Rewey Rings Not Reportable 10/31/21 04:32 Demar Cells Not Reportable 10/31/21 04:32 Bite Cells Not Reportable 10/31/21 04:32 Crenated Cell Not Reportable 10/31/21 04:32 Elliptocytes Not Reportable 10/31/21 04:32 Acanthocytes (Spur) Not Reportable 10/31/21 04:32 Rouleaux Not Reportable 10/31/21 04:32 Hemoglobin C Crystals Not Reportable 10/31/21 04:32 Schistocytes Not Reportable 10/31/21 04:32 Malaria parasites Not Reportable 10/31/21 04:32 Nic Bodies Not Reportable 10/31/21 04:32 Hem Pathologist Commnt No 10/31/21 04:32 PT 14.0 Sec. (12.2-14.9) 10/30/21 11:31 INR 0.97 (0.87-1.13) 10/30/21 11:31 Sodium 136 mmol/L (137-145) L 10/31/21 04:32 Potassium 4.2 mmol/L (3.6-5.0) 10/31/21 04:32 Chloride 99.5 mmol/L (98-107) 10/31/21 04:32 Carbon Dioxide 22 mmol/L (22-30) 10/31/21 04:32 Anion Gap 19 mmol/L 10/31/21 04:32 BUN 14 mg/dL (9-20) 10/31/21 04:32 Creatinine 0.9 mg/dL (0.8-1.3) 10/31/21 04:32 Estimated GFR > 60 ml/min 10/31/21 04:32 BUN/Creatinine Ratio 16 % 10/31/21 04:32 Glucose 123 mg/dL (75-100) H 10/31/21 04:32 POC Glucose 126 mg/dL (70-105) H 11/01/21 07:28 Lactic Acid 0.90 mmol/L (0.7-2.0) 10/30/21 14:43 Calcium 8.5 mg/dL (8.4-10.2) 10/31/21 04:32 Total Bilirubin 0.40 mg/dL (0.1-1.2) 10/31/21 04:32 AST 36 units/L (5-40) 10/31/21 04:32 ALT 48 units/L (7-56) 10/31/21 04:32 Alkaline Phosphatase 138 units/L (35-129) H 10/31/21 04:32 Ammonia 21.0 umol/L (25-60) L 10/30/21 21:49 Total Creatine Kinase 72 units/L (55-170) 10/30/21 11:31 CK-MB (CK-2) < 1.0 ng/mL (0.0-4.0) 10/30/21 11:31 CK-MB (CK-2) Rel Index 1.3 (0-4) 10/30/21 11:31 Troponin T < 0.010 ng/mL (0.00-0.029) 10/30/21 11:31 Total Protein 7.7 g/dL (6.3-8.2) 10/31/21 04:32 Albumin 3.5 g/dL (3.9-5) L 10/31/21 04:32 Albumin/Globulin Ratio 0.8 % 10/31/21 04:32 Urine Color Yellow (Yellow) 10/30/21 11:18 Urine Turbidity Clear (Clear) 10/30/21 11:18 Urine pH 6.0 (5.0-7.0) 10/30/21 11:18 Ur Specific [place] 1.015 (1.003-1.030) 10/30/21 11:18 Urine Protein 30 mg/dl mg/dL (Negative) 10/30/21 11:18 Urine Glucose (UA) Negative mg/dL (Negative) 10/30/21 11:18 Urine Ketones Negative mg/dL (Negative) 10/30/21 11:18 Urine Blood 1+ (Negative) 10/30/21 11:18 Urine Nitrite 1+ (Negative) 10/30/21 11:18 Ur Reducing Substances Not Reportable 10/30/21 11:18 Urine Bilirubin 1+ (Negative) 10/30/21 11:18 Urine Ictotest Negative (Negative) 10/30/21 11:18 Urine Urobilinogen 0.0 mg/dL (<2.0) 10/30/21 11:18 Ur Leukocyte Esterase Negative (Negative) 10/30/21 11:18 Urine WBC (Auto) 11.0 /HPF (0.0-6.0) H 10/30/21 11:18 Urine RBC (Auto) 2.0 /HPF (0.0-6.0) 10/30/21 11:18 U Epithel Cells (Auto) 3.0 /HPF (0-13.0) 10/30/21 11:18 Urine Mucus Few /HPF 10/30/21 11:18 Microbiology: Microbiology 10/30/21 14:49 Peripheral/Venous Blood Culture - Preliminary NO GROWTH AFTER 24 HOURS 10/30/21 14:43 Peripheral/Venous Blood Culture - Preliminary NO GROWTH AFTER 24 HOURS 10/30/21 11:18 Urine,Clean Catch Urine Culture - Preliminary Cruz/IV: Voiding Method Urinal Active Medications - Current Medications Current Medications: Generic Name Dose Route Start Last Admin Trade Name Freq PRN Reason Stop Dose Admin Acetaminophen 650 mg 10/30/21 21:31 Acetaminophen 325 Mg Tab PO Q4H PRN Pain MILD(1-3)/Fever >100.5/MCDERMOTT Albuterol 2.5 mg 10/30/21 21:39 10/30/21 23:50 Albuterol 2.5 Mg/3 Ml Nebu IH 2.5 mg Q3HRT PRN Administration Wheezing Albuterol/Ipratropium 1 ampul 10/31/21 08:00 11/01/21 09:06 Ipratropium/Albuterol Sulfate 3 Ml Ampul.Neb IH 1 ampul QIDRT JAYLA Administration Famotidine 20 mg 10/30/21 22:00 10/31/21 22:39 Famotidine 20 Mg Tab PO 20 mg BID JAYLA Administration Guaifenesin 10 ml 10/31/21 01:11 10/31/21 22:39 Guaifenesin Dm 200/20 Mg Oral Liqd 10 Ml PO 10 ml Q4H PRN Administration Cough Heparin Sodium (Porcine) 5,000 unit 10/30/21 22:00 10/31/21 22:39 Heparin 5,000 Unit/1 Ml Vial SUB-Q 5,000 unit Q12HR JAYLA Administration Cefepime HCl 2 gm in 100 mls @ 200 mls/hr 10/31/21 11:00 10/31/21 23:11 Cefepime/Ns 2 Gm/100 Ml IV Infused Q12HR JAYLA Infusion Protocol Vancomycin HCl 1,250 mg/ 275 mls @ 166.667 mls/hr 11/01/21 06:00 11/01/21 07:37 Sodium Chloride IV 166.667 mls/hr Q12H JAYLA Administration Morphine Sulfate 2 mg 10/30/21 21:33 10/30/21 22:20 Morphine 2 Mg/1 Ml Inj IV 2 mg Q4H PRN Administration Pain, Moderate (4-6) Ondansetron HCl 4 mg 10/30/21 21:31 Ondansetron 4 Mg/2 Ml Inj IV Q8H PRN Nausea And Vomiting Oxycodone/Acetaminophen 1 tab 10/30/21 21:33 10/31/21 13:16 Oxycodone /Acetaminophen 5-325mg Tab PO 1 tab Q6H PRN Administration Pain, Moderate (4-6) Sodium Chloride 10 ml 10/30/21 22:00 11/01/21 07:37 Sodium Chloride 0.9% 10 Ml Flush Syringe IV 10 ml BID JAYLA Administration Sodium Chloride 10 ml 10/30/21 21:31 Sodium Chloride 0.9% 10 Ml Flush Syringe IV PRN PRN LINE FLUSH Nutrition/Malnutrition Assess - Dietary Evaluation Nutrition/Malnutrition Findings: Nutrition Notes Start: 10/31/21 13:18 Freq: Status: Active Protocol: Document 10/31/21 13:18 SALENA (Rec: 10/31/21 13:38 SALENA [id number]) Nutrition Notes Need for Assessment generated from: functional support analyst,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 Current Diet Regular Diet (since B 10/31). Labs/Tests 10/31: Na 136, Glu 123. Pertinent Medications 10/31: Nutritionally unremarkable. 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 Weight Status Appropriate Subjective/Other Information RD consult for skin risk and risk of malnutrition assessments. Pt is on PO diet, No reports on Pt's PO intake of meals at the time, will assess at F/U. Pt is on Nasal Cannula, O2 saturation @ 98%, according to Physical Assessment History notes. Pt shows no signs of concern for skin risk at the time, according to Physical Assessment History notes. Pt shous no signs of concern for risk of malnutrition at the time, according to Physical Assessment History notes. Percent of energy/protein needs met: Prescribed Regular Diet provides for energy/protein needs (2,289 Kcal/89 g) during LOS. Burn Absent Trauma Absent GI Symptoms None Food Allergy No Skin Integrity/Comment Assessment WNL. Minimum of two criteria No Fluid Accumulation N/A Reduced Quantitative Researcher Strength N/A (non-severe) Protein-Calorie Malnutrition N\A #1 Nutrition Diagnosis No nutrition diagnosis at this time Is patient on ventilator? No Is Patient Ambulatory and/or Out of Bed Yes REE-([facility]-ambulatory/OOB) [ 2034.669 [id number]] Calculation Used for Recommendations [facility] Additional Notes Protein: 08-1 g/Kg ABW; 59-74 g/day. Fluids: 1 ml/Kcal, or as per MD. Nutrition Intervention Change Diet Order: Continue Regular Diet as tolerated. Follow-Up By: 11/07/21 Additional Comments Continue monitoring food tolerance, %PO intake of meals , and BM.
[2021-11-01] MEDS ORDERED: ALBUTEROL 2.5 MG/3 ML NEBU IH PRN (09:28)
[2021-11-01] MEDS ORDERED: FLUTICASONE PROPIONATE NASAL SPRAY 16 GM NS PRN (14:56)
[2021-11-01] MEDS ORDERED: REMDESIVIR 200 MG in SODIUM CHLORIDE 0.9% 250ML 250 ML IV ONE (15:00)
[2021-11-01] MEDS ORDERED: dexAMETHasone 4 MG/ML VIAL IV ONE (16:00)
[2021-11-01 17:10] LABS: Alanine Aminotransferase 74 units/L (7-56); Albumin 3.1 g/dL (3.9-5); BUN/Creatinine Ratio 9; Blood Urea Nitrogen 7 mg/dL (9-20); Hemolysis Index 57
[2021-11-01] MEDS: guaiFENesin/CODEINE 100-10MG ORAL LIQD 5 ML PO PRN ×2 (18:12→22:15)
[2021-11-01] MEDS: oxyCODONE /ACETAMINOPHEN 5-325MG TAB PO PRN (18:12)
[2021-11-01] MEDS: ARFORMOTEROL 15 MCG/2 ML NEBU IH SCH (19:27)
[2021-11-01] MEDS: BUDESONIDE 0.5 MG/2 ML NEBU IH SCH (19:27)
[2021-11-02] MEDS: VANCOMYCIN 1,250 MG in SODIUM CHLORIDE 0.9% 250ML 250 ML IV SCH ×2 (05:17→18:04)
[2021-11-02] MEDS ORDERED: ALBUTEROL 8.5 GM MDI INHALATION IH PRN (08:00)
[2021-11-02] MEDS: BUDESONIDE 0.5 MG/2 ML NEBU IH SCH ×2 (08:34→20:31)
[2021-11-02] MEDS: ARFORMOTEROL 15 MCG/2 ML NEBU IH SCH ×2 (08:34→20:32)
[2021-11-02 09:25] LABS: Alanine Aminotransferase 75 units/L (7-56); Albumin 3.3 g/dL (3.9-5); Blood Urea Nitrogen 9 mg/dL (9-20); Calcium 8.8 mg/dL (8.4-10.2); Hemolysis Index 0
[2021-11-02 09:26] LABS: BUN/Creatinine Ratio 13
[2021-11-02] MEDS: CEFEPIME/NS 2 GM/100 ML 2 GM/100 ML BAG IV SCH ×2 (11:33→22:10)
[2021-11-02] MEDS: guaiFENesin/CODEINE 100-10MG ORAL LIQD 5 ML PO PRN ×2 (11:33→22:11)
[2021-11-02] MEDS: oxyCODONE /ACETAMINOPHEN 5-325MG TAB PO PRN (11:33)
[2021-11-02] MEDS: FAMOTIDINE 20 MG TAB PO SCH ×2 (11:34→22:10)
[2021-11-02] MEDS: HEPARIN 5,000 UNIT/1 ML VIAL SUB-Q SCH ×2 (11:34→22:10)
[2021-11-02] MEDS: dexAMETHasone 4 MG/ML VIAL IV SCH (11:42)
--- NOTE | 2021-11-02 12:05 | Progress Note ---
Assessment and Plan Assessment and plan: -COVID-19 positive; 11/01/2021 Patient's kebede PCR test came back + 11/02/2019 Isolation precautions PPE protocols followed Inflammatory markers, dexamethasone Hypoxia; patient is on 3 L of nasal cannula oxygen Candidate for dexamethasone for 10 days, remdesivir for 5 days Wean oxygen as tolerated Home O2 evaluation prior to discharge Isolation precautions and PPE protocols per CDC guidelines ID already following - Bilateral pneumonia/community-acquired POA Patient initiated on IV Zithromax and IV Rocephin Patient has bilateral cavitary lesions ID pulmonary evaluated the patient Patient is placed in airborne isolation AFB cultures, AFB smears, gold interferon Test pending, follow cultures --Pulmonary cavitary lesion TB and other fungal diseases to be ruled out Patient also has fever, ID following Airborne isolation, follow AFB testing --COPD (chronic obstructive pulmonary disease) DuoNebs [id number] and as needed --CAD (coronary artery disease) Continue aspirin and statins --GERD (gastroesophageal reflux disease) Continue PPIs --DVT prophylaxis On heparin and GI prophylaxis -- Advance care planning Disease education collected, care plan discussed, diagnosis discussed close. Patient acknowledged understanding with care plan. +30 minutes. Patient is full code. 11/01/2021; patient feels slightly better still has chest congestion and cough Patient is already on cefepime recommended by ID Follow cultures, follow AFB studies reports, follow kebede PCR test 11/02; continue current management, follow pending AFB tests Closely monitor the patient and adjust management as needed Plan of care reviewed with the patient and his nurse History Interval history: I have seen and examined the patient at the bedside in isolation room Patient's chart and medications reviewed She feels slightly better today cough significantly improved Vital signs noted Hospitalist Physical - Constitutional Vitals: Temp Pulse Resp BP Pulse Ox 99.4 F 92 H 20 111/67 96 11/01/21 05:27 11/02/21 08:34 11/02/21 08:34 11/02/21 05:10 11/02/21 08:35 General appearance: Present: no acute distress, well-nourished - EENT Eyes: Present: PERRL, EOM intact - Neck Neck: Present: supple, normal ROM - Respiratory Respiratory effort: normal Respiratory: bilateral: diminished, rhonchi, negative: rales, wheezing - Cardiovascular Rhythm: regular Heart Sounds: Present: S1 & S2 - Extremities Extremities: no ischemia, No edema - Abdominal General gastrointestinal: soft, non-tender, non-distended, normal bowel sounds - Integumentary Integumentary: Present: clear, warm - Psychiatric Psychiatric: appropriate mood/affect, cooperative - Neurologic Neurologic: moves all extremities HEART Score - HEART Score Troponin: Troponin T < 0.010 ng/mL (0.00-0.029) 10/30/21 11:31 Results - Labs CBC & Chem 7: 10/31/21 04:32 11/02/21 07:10 Labs: Laboratory Last Values WBC 7.9 K/mm3 (4.5-11.0) 10/31/21 04:32 RBC 3.85 M/mm3 (3.65-5.03) 10/31/21 04:32 Hgb 11.1 gm/dl (11.8-15.2) L 10/31/21 04:32 Hct 33.8 % (35.5-45.6) L 10/31/21 04:32 MCV 88 fl (84-94) 10/31/21 04:32 MCH 29 pg (28-32) 10/31/21 04:32 MCHC 33 % (32-34) 10/31/21 04:32 RDW 14.8 % (13.2-15.2) 10/31/21 04:32 Plt Count 265 K/mm3 (140-440) 10/31/21 04:32 Lymph % (Auto) 11.4 % (13.4-35.0) L 10/30/21 11:31 Todd % (Auto) General Cleaner 10/31/21 04:32 Eos % (Auto) 2.9 % (0.0-4.3) 10/30/21 11:31 Baso % (Auto) 0.7 % (0.0-1.8) 10/30/21 11:31 Lymph # (Auto) 1.2 K/mm3 (1.2-5.4) 10/30/21 11:31 Todd # (Auto) 1.3 K/mm3 (0.0-0.8) H 10/30/21 11:31 Eos # (Auto) 0.3 K/mm3 (0.0-0.4) 10/30/21 11:31 Baso # (Auto) 0.1 K/mm3 (0.0-0.1) 10/30/21 11:31 Add Manual Diff Complete 10/31/21 04:32 Total Counted 100 10/31/21 04:32 Seg Neutrophils % 73.1 % (40.0-70.0) H 10/30/21 11:31 Seg Neuts % (Manual) 72.0 % (40.0-70.0) H 10/31/21 04:32 Band Neutrophils % 0 % 10/31/21 04:32 Lymphocytes % (Manual) 15.0 % (13.4-35.0) 10/31/21 04:32 Reactive Lymphs % (Man) 0 % 10/31/21 04:32 Monocytes % (Manual) 12.0 % (0.0-7.3) H 10/31/21 04:32 Eosinophils % (Manual) 1.0 % (0.0-4.3) 10/31/21 04:32 Basophils % (Manual) 0 % (0.0-1.8) 10/31/21 04:32 Metamyelocytes % 0 % 10/31/21 04:32 Myelocytes % 0 % 10/31/21 04:32 Promyelocytes % 0 % 10/31/21 04:32 Blast Cells % 0 % 10/31/21 04:32 Nucleated RBC % Not Reportable 10/31/21 04:32 Seg Neutrophils # 8.0 K/mm3 (1.8-7.7) H 10/30/21 11:31 Seg Neutrophils # Man 5.7 K/mm3 (1.8-7.7) 10/31/21 04:32 Band Neutrophils # 0.0 K/mm3 10/31/21 04:32 Lymphocytes # (Manual) 1.2 K/mm3 (1.2-5.4) 10/31/21 04:32 Abs React Lymphs (Man) 0.0 K/mm3 10/31/21 04:32 Monocytes # (Manual) 0.9 K/mm3 (0.0-0.8) H 10/31/21 04:32 Eosinophils # (Manual) 0.1 K/mm3 (0.0-0.4) 10/31/21 04:32 Basophils # (Manual) 0.0 K/mm3 (0.0-0.1) 10/31/21 04:32 Metamyelocytes # 0.0 K/mm3 10/31/21 04:32 Myelocytes # 0.0 K/mm3 10/31/21 04:32 Promyelocytes # 0.0 K/mm3 10/31/21 04:32 Blast Cells # 0.0 K/mm3 10/31/21 04:32 WBC Morphology Not Reportable 10/31/21 04:32 Hypersegmented Neuts Not Reportable 10/31/21 04:32 Hyposegmented Neuts Not Reportable 10/31/21 04:32 Hypogranular Neuts Not Reportable 10/31/21 04:32 Smudge Cells Not Reportable 10/31/21 04:32 Toxic Granulation Not Reportable 10/31/21 04:32 Toxic Vacuolation Not Reportable 10/31/21 04:32 Dohle Bodies Not Reportable 10/31/21 04:32 Pelger-Huet Anomaly Not Reportable 10/31/21 04:32 Kristian Rods Not Reportable 10/31/21 04:32 Platelet Estimate Consistent w auto 10/31/21 04:32 Clumped Platelets Not Reportable 10/31/21 04:32 Plt Clumps, EDTA Not Reportable 10/31/21 04:32 Large Platelets Not Reportable 10/31/21 04:32 Giant Platelets Not Reportable 10/31/21 04:32 Platelet Satelliting Not Reportable 10/31/21 04:32 Plt Morphology Comment Not Reportable 10/31/21 04:32 RBC Morphology Not Reportable 10/31/21 04:32 Dimorphic RBCs Not Reportable 10/31/21 04:32 Polychromasia Not Reportable 10/31/21 04:32 Hypochromasia Not Reportable 10/31/21 04:32 Poikilocytosis Not Reportable 10/31/21 04:32 Anisocytosis Not Reportable 10/31/21 04:32 Microcytosis Not Reportable 10/31/21 04:32 Macrocytosis Not Reportable 10/31/21 04:32 Spherocytes Not Reportable 10/31/21 04:32 Pappenheimer Bodies Not Reportable 10/31/21 04:32 Sickle Cells Not Reportable 10/31/21 04:32 Target Cells Not Reportable 10/31/21 04:32 Tear Drop Cells Not Reportable 10/31/21 04:32 Ovalocytes Not Reportable 10/31/21 04:32 Helmet Cells Not Reportable 10/31/21 04:32 [place] Bodies Not Reportable 10/31/21 04:32 [place] Rings Not Reportable 10/31/21 04:32 Demar Cells Not Reportable 10/31/21 04:32 Bite Cells Not Reportable 10/31/21 04:32 Crenated Cell Not Reportable 10/31/21 04:32 Elliptocytes Not Reportable 10/31/21 04:32 Acanthocytes (Spur) Not Reportable 10/31/21 04:32 Rouleaux Not Reportable 10/31/21 04:32 Hemoglobin C Crystals Not Reportable 10/31/21 04:32 Schistocytes Not Reportable 10/31/21 04:32 Malaria parasites Not Reportable 10/31/21 04:32 Nic Bodies Not Reportable 10/31/21 04:32 Hem Pathologist Commnt No 10/31/21 04:32 PT 14.0 Sec. (12.2-14.9) 10/30/21 11:31 INR 0.97 (0.87-1.13) 10/30/21 11:31 D-Dimer 1159.97 ng/mlDDU (0-234) H 11/02/21 07:40 Sodium 139 mmol/L (137-145) 11/02/21 07:10 Potassium 5.1 mmol/L (3.6-5.0) H 11/02/21 07:10 Chloride 106.7 mmol/L (98-107) 11/02/21 07:10 Carbon Dioxide 18 mmol/L (22-30) L 11/02/21 07:10 Anion Gap 19 mmol/L 11/02/21 07:10 BUN 9 mg/dL (9-20) 11/02/21 07:10 Creatinine 0.7 mg/dL (0.8-1.3) L 11/02/21 07:10 Estimated GFR > 60 ml/min 11/02/21 07:10 BUN/Creatinine Ratio 13 % 11/02/21 07:10 Glucose 183 mg/dL (75-100) H 11/02/21 07:10 POC Glucose 180 mg/dL (70-105) H 11/02/21 11:35 Lactic Acid 0.90 mmol/L (0.7-2.0) 10/30/21 14:43 Calcium 8.8 mg/dL (8.4-10.2) 11/02/21 07:10 Ferritin 538.6 ng/mL (30.0-300.0) H 11/02/21 07:10 Total Bilirubin 0.20 mg/dL (0.1-1.2) 11/02/21 07:10 AST 63 units/L (5-40) H 11/02/21 07:10 ALT 75 units/L (7-56) H 11/02/21 07:10 Alkaline Phosphatase 187 units/L (35-129) H 11/02/21 07:10 Ammonia 21.0 umol/L (25-60) L 10/30/21 21:49 Total Creatine Kinase 72 units/L (55-170) 10/30/21 11:31 CK-MB (CK-2) < 1.0 ng/mL (0.0-4.0) 10/30/21 11:31 CK-MB (CK-2) Rel Index 1.3 (0-4) 10/30/21 11:31 Troponin T < 0.010 ng/mL (0.00-0.029) 10/30/21 11:31 Total Protein 7.8 g/dL (6.3-8.2) 11/02/21 07:10 Albumin 3.3 g/dL (3.9-5) L 11/02/21 07:10 Albumin/Globulin Ratio 0.7 % 11/02/21 07:10 Urine Color Yellow (Yellow) 10/30/21 11:18 Urine Turbidity Clear (Clear) 10/30/21 11:18 Urine pH 6.0 (5.0-7.0) 10/30/21 11:18 Ur Specific [place] 1.015 (1.003-1.030) 10/30/21 11:18 Urine Protein 30 mg/dl mg/dL (Negative) 10/30/21 11:18 Urine Glucose (UA) Negative mg/dL (Negative) 10/30/21 11:18 Urine Ketones Negative mg/dL (Negative) 10/30/21 11:18 Urine Blood 1+ (Negative) 10/30/21 11:18 Urine Nitrite 1+ (Negative) 10/30/21 11:18 Ur Reducing Substances Not Reportable 10/30/21 11:18 Urine Bilirubin 1+ (Negative) 10/30/21 11:18 Urine Ictotest Negative (Negative) 10/30/21 11:18 Urine Urobilinogen 0.0 mg/dL (<2.0) 10/30/21 11:18 Ur Leukocyte Esterase Negative (Negative) 10/30/21 11:18 Urine WBC (Auto) 11.0 /HPF (0.0-6.0) H 10/30/21 11:18 Urine RBC (Auto) 2.0 /HPF (0.0-6.0) 10/30/21 11:18 U Epithel Cells (Auto) 3.0 /HPF (0-13.0) 10/30/21 11:18 Urine Mucus Few /HPF 10/30/21 11:18 Coronavirus (PCR) Positive (Negative) A 11/01/21 09:20 Microbiology: Microbiology 10/30/21 14:49 Peripheral/Venous Blood Culture - Preliminary NO GROWTH AFTER 48 HOURS 10/30/21 14:43 Peripheral/Venous Blood Culture - Preliminary NO GROWTH AFTER 48 HOURS 10/30/21 11:18 Urine,Clean Catch Urine Culture - Final Cruz/IV: Voiding Method Urinal Active Medications - Current Medications Current Medications: Generic Name Dose Route Start Last Admin Trade Name Freq PRN Reason Stop Dose Admin Acetaminophen 650 mg 10/30/21 21:31 Acetaminophen 325 Mg Tab PO Q4H PRN Pain MILD(1-3)/Fever >100.5/MCDERMOTT Albuterol 2 puff 11/02/21 08:00 Albuterol 8.5 Gm Mdi Inhalation IH Q6HRT PRN Shortness Of Breath Arformoterol Tartrate 15 mcg 11/01/21 20:00 11/02/21 08:34 Arformoterol 15 Mcg/2 Ml Nebu IH 15 mcg Q12HRT JAYLA Administration Budesonide 0.5 mg 11/01/21 20:00 11/02/21 08:34 Budesonide 0.5 Mg/2 Ml Nebu IH 0.5 mg Q12HRT JAYLA Administration Dexamethasone 6 mg 11/02/21 11:00 11/02/21 11:42 Dexamethasone 4 Mg/Ml Vial IV 11/10/21 10:01 6 mg DAILY JAYLA Administration Famotidine 20 mg 10/30/21 22:00 11/02/21 11:34 Famotidine 20 Mg Tab PO 20 mg BID JAYLA Administration Fluticasone Propionate 100 mcg 11/01/21 14:56 11/01/21 18:13 Fluticasone Propionate Nasal [place] 16 Gm NS 100 mcg QDAY PRN Administration Congestion Heparin Sodium (Porcine) 5,000 unit 10/30/21 22:00 11/02/21 11:34 Heparin 5,000 Unit/1 Ml Vial SUB-Q 5,000 unit Q12HR JAYLA Administration Cefepime HCl 2 gm in 100 mls @ 200 mls/hr 10/31/21 11:00 11/02/21 11:33 Cefepime/Ns 2 Gm/100 Ml IV 200 mls/hr Q12HR JAYLA Administration Protocol Vancomycin HCl 1,250 mg/ 275 mls @ 166.667 mls/hr 11/01/21 06:00 11/02/21 05:17 Sodium Chloride IV 166.667 mls/hr Q12H JAYLA Administration Remdesivir 100 mg/ Sodium 250 mls @ 500 mls/hr 11/02/21 14:00 Chloride IV 11/05/21 14:29 Q24HR@1400 [facility] Morphine Sulfate 2 mg 10/30/21 21:33 10/30/21 22:20 Morphine 2 Mg/1 Ml Inj IV 2 mg Q4H PRN Administration Pain, Moderate (4-6) Ondansetron HCl 4 mg 10/30/21 21:31 Ondansetron 4 Mg/2 Ml Inj IV Q8H PRN Nausea And Vomiting Oxycodone/Acetaminophen 1 tab 10/30/21 21:33 11/02/21 11:33 Oxycodone /Acetaminophen 5-325mg Tab PO 1 tab Q6H PRN Administration Pain, Moderate (4-6) Pseudoephedrine/Acetam/Chlorphenir 10 ml 11/01/21 14:56 11/02/21 11:33 Guaifenesin/Codeine 100-10mg Oral Liqd 5 Ml PO 10 ml Q4H PRN Administration Cough Sodium Chloride 10 ml 10/30/21 22:00 11/02/21 11:34 Sodium Chloride 0.9% 10 Ml Flush Syringe IV 10 ml BID JAYLA Administration Sodium Chloride 10 ml 10/30/21 21:31 Sodium Chloride 0.9% 10 Ml Flush Syringe IV PRN PRN LINE FLUSH Nutrition/Malnutrition Assess - Dietary Evaluation Nutrition/Malnutrition Findings: Nutrition Notes Start: 10/31/21 13:18 Freq: Status: Active Protocol: Document 10/31/21 13:18 SALENA (Rec: 10/31/21 13:38 SALENA [id number]) Nutrition Notes 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 Current Diet Regular Diet (since B 10/31). Labs/Tests 10/31: Na 136, Glu 123. Pertinent Medications 10/31: Nutritionally unremarkable. 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 Weight Status Appropriate Subjective/Other Information RD consult for skin risk and risk of malnutrition assessments. Pt is on PO diet, No reports on Pt's PO intake of meals at the time, will assess at F/U. Pt is on Nasal Cannula, O2 saturation @ 98%, according to Physical Assessment History notes. Pt shows no signs of concern for skin risk at the time, according to Physical Assessment History notes. Pt shous no signs of concern for risk of malnutrition at the time, according to Physical Assessment History notes. Percent of energy/protein needs met: Prescribed Regular Diet provides for energy/protein needs (2,289 Kcal/89 g) during LOS. Burn Absent Trauma Absent GI Symptoms None Food Allergy No Skin Integrity/Comment Assessment WNL. Minimum of two criteria No Fluid Accumulation N/A Reduced Crime Lab Analyst Strength N/A (non-severe) Protein-Calorie Malnutrition N\A #1 Nutrition Diagnosis No nutrition diagnosis at this time Is patient on ventilator? No Is Patient Ambulatory and/or Out of Bed Yes REE-([facility]-ambulatory/OOB) [ 2034.669 NUTR.MSJOOB] Calculation Used for Recommendations [facility] Additional Notes Protein: 08-1 g/Kg ABW; 59-74 g/day. Fluids: 1 ml/Kcal, or as per MD. Nutrition Intervention Change Diet Order: Continue Regular Diet as tolerated. Follow-Up By: 11/07/21 Additional Comments Continue monitoring food tolerance, %PO intake of meals , and BM.
[2021-11-02] MEDS: IPRATROPIUM/ALBUTEROL SULFATE 3 ML AMPUL.NEB IH SCH ×2 (13:29→20:31)
--- NOTE | 2021-11-02 13:39 | Event Note ---
Date: 11/02/21 received records from [place]. These lesions in the upper lobes have been present at least since 2020 based on the documentation that we have. 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 There have been plans to admit patient for prison IV abx to irridicate it but not sure why this has been done. He is followed by pulmonary at [place] and was referred to Dr. Abram Ibarra who is an expert in bronchiectasis. he has chronic respiratory failure and is on about 2.5-3 liters at home. Patient also has a history of PE in June. I left the most pertinent of notes on the top for anyone else who would like to review. At this time, from a pulmonary standpoint, I do not feel that intervention is needed from us. He should follow back up with [facility] jemima.
[2021-11-02] MEDS: REMDESIVIR 100 MG in SODIUM CHLORIDE 0.9% 250ML 250 ML IV SCH (15:58)
[2021-11-02] MEDS: INSULIN LISPRO 100 UNIT/ML SUB-Q SCH (22:10)
[2021-11-03] MEDS: oxyCODONE /ACETAMINOPHEN 5-325MG TAB PO PRN (00:57)
[2021-11-03] MEDS: VANCOMYCIN 1,250 MG in SODIUM CHLORIDE 0.9% 250ML 250 ML IV SCH ×2 (06:08→19:35)
[2021-11-03] MEDS: INSULIN LISPRO 100 UNIT/ML SUB-Q SCH ×5 (07:30→22:18)
[2021-11-03 08:26] LABS: Alanine Aminotransferase 56 units/L (7-56); Albumin 3.3 g/dL (3.9-5); Blood Urea Nitrogen 13 mg/dL (9-20); Calcium 8.4 mg/dL (8.4-10.2); Hemolysis Index 0
[2021-11-03 08:46] LABS: BUN/Creatinine Ratio 19
[2021-11-03] MEDS: ARFORMOTEROL 15 MCG/2 ML NEBU IH SCH ×2 (08:53→20:23)
[2021-11-03] MEDS: IPRATROPIUM/ALBUTEROL SULFATE 3 ML AMPUL.NEB IH SCH ×3 (08:53→20:23)
[2021-11-03] MEDS: BUDESONIDE 0.5 MG/2 ML NEBU IH SCH ×2 (08:53→20:23)
[2021-11-03] MEDS: guaiFENesin/CODEINE 100-10MG ORAL LIQD 5 ML PO PRN ×2 (10:32→21:51)
[2021-11-03] MEDS: FAMOTIDINE 20 MG TAB PO SCH ×2 (10:33→21:51)
[2021-11-03] MEDS: CEFEPIME/NS 2 GM/100 ML 2 GM/100 ML BAG IV SCH ×2 (10:33→21:53)
[2021-11-03] MEDS: dexAMETHasone 4 MG/ML VIAL IV SCH (10:33)
[2021-11-03] MEDS: HEPARIN 5,000 UNIT/1 ML VIAL SUB-Q SCH ×2 (10:34→21:51)
--- NOTE | 2021-11-03 10:38 | Progress Note ---
Assessment and Plan Cultures: 10/30/2021 blood culture: No growth 11/01/2021 sputum culture: GNR 11/01/2021 COVID-19 PCR: Positive A/P: 61-year-old male with COPD, diabetes, GERD, chronic respiratory failure requiring home oxygen was admitted to the hospital with complaints of fever and cough going on for about 2 days: #Bilateral upper lobe cavitary pneumonia: Reviewed outside records from [place]. Agree with Dr. 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 He should follow up with his physicians at [place] and [place] including Dr. Ibarra who is an expert in bronchiectasis. In my opinion, given his significant structural lung disease and chronic colonization, eradiation of Pseudomonas is going to be very difficult and unlikely. Mainstay will be secretion clearance techniques to help reduce bioburden and help manage his symptoms. He is currently not septic, appears to be clinically stable. Continue to treat for COVID-19 and COPD. #COPD with chronic respiratory failure, on home oxygen Recs: -Reviewed outside records from [place]. Agree with Dr. 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 He should follow up with his physicians at [place] and [place] including Dr. Ibarra who is an expert in bronchiectasis. In my opinion, given his significant structural lung disease and chronic colonization, eradiation of Pseudomonas is going to be very difficult and unlikely. Mainstay will be secretion clearance techniques to help reduce bioburden and help manage his symptoms. He is currently not septic, appears to be clinically stable. Continue to treat for COVID-19 and COPD. -Continue cefepime and vancomycin for now -Continue IV Remdesivir for 5 days -Continue Decadron -Follow-up CRP, procalcitonin -TB isolation not required. Continue isolation for COVID-19 Glenn Matson MD, FACP, [facility] O: [phone] F: [phone] C: [phone] Subjective Date of service: 11/03/21 Interval history: Reports feeling slightly better, but not back to baseline. On oxygen by [place]. stable. Objective - Exam Narrative Exam: Physical Exam: Constitutional: Alert, cooperative. No acute distress Head, Ears, Nose: Normocephalic, atraumatic. External ears, nose normal Eyes: Conjunctivae/corneas clear. No icterus. No ptosis. Neck: Supple, no meningeal signs Cardiovascular: S1, S2 + Respiratory: AE fair b/l GI: Soft, non-tender; bowel sounds normal. No peritoneal signs Musculoskeletal: No pedal edema, no cyanosis. Skin: No rash or abscess Hem/Lymphatic: No palpable cervical or supraclavicular nodes. No lymphangitis Psych: Mood ok. Affect normal Neurological: Awake, alert, oriented. No gross abnormality - Constitutional Vitals: Vital Signs Temp Pulse Resp BP Pulse Ox 98.6 F 83 24 120/68 97 11/03/21 04:04 11/03/21 08:53 11/03/21 08:53 11/03/21 04:04 11/03/21 08:53 Temperature -Last 24 Hours Temperature 98.6 F Temperature 98.7 F Temperature 97.8 F - Labs CBC & Chem 7: 10/31/21 04:32 11/03/21 07:16 Labs: Abnormal lab results 11/02/21 11/02/21 11/02/21 Range/Units 11:35 16:15 20:58 Creatinine (0.8-1.3) mg/dL Glucose (75-100) mg/dL POC Glucose 180 H 256 H 222 H (70-105) mg/dL Alkaline Phosphatase (35-129) units/L Albumin (3.9-5) g/dL 11/03/21 11/03/21 Range/Units 07:16 08:55 Creatinine 0.7 L (0.8-1.3) mg/dL Glucose 145 H (75-100) mg/dL POC Glucose 133 H (70-105) mg/dL Alkaline Phosphatase 159 H (35-129) units/L Albumin 3.3 L (3.9-5) g/dL
[2021-11-03] MEDS ORDERED: SODIUM CHLORIDE 0.9% 250ML 0 ML ONE (15:30)
[2021-11-03] MEDS ORDERED: SODIUM CHLORIDE 0.9% 50 ML ONE (15:37)
[2021-11-03] MEDS: MULTIVITAMINS ,THERAPEUTIC TAB PO SCH (15:44)
[2021-11-03] MEDS: REMDESIVIR 100 MG in SODIUM CHLORIDE 0.9% 250ML 250 ML IV SCH (15:45)
--- NOTE | 2021-11-03 20:24 | Progress Note ---
Assessment and Plan Assessment and plan: -COVID-19 positive; 11/01/2021 Patient's kebede PCR test came back + 11/02/2019 Isolation precautions PPE protocols followed Inflammatory markers, dexamethasone Hypoxia; patient is on 3 L of nasal cannula oxygen Candidate for dexamethasone for 10 days, remdesivir for 5 days Wean oxygen as tolerated Home O2 evaluation prior to discharge Isolation precautions and PPE protocols per CDC guidelines ID already following - Bilateral pneumonia/community-acquired POA Patient initiated on IV Zithromax and IV Rocephin Patient has bilateral cavitary lesions ID pulmonary evaluated the patient Patient is placed in airborne isolation AFB cultures, AFB smears, gold interferon Test pending, follow cultures --Pulmonary cavitary lesion TB and other fungal diseases to be ruled out Patient also has fever, ID following Airborne isolation, follow AFB testing --COPD (chronic obstructive pulmonary disease) DuoNebs [id number] and as needed --CAD (coronary artery disease) Continue aspirin and statins --GERD (gastroesophageal reflux disease) Continue PPIs --DVT prophylaxis On heparin and GI prophylaxis -- Advance care planning Disease education collected, care plan discussed, diagnosis discussed close. Patient acknowledged understanding with care plan. +30 minutes. Patient is full code. 11/01/2021; patient feels slightly better still has chest congestion and cough Patient is already on cefepime recommended by ID Follow cultures, follow AFB studies reports, follow kebede PCR test 11/02; continue current management, follow pending AFB tests Closely monitor the patient and adjust management as needed Plan of care reviewed with the patient and his nurse 11/03, continue current management Follow consultants and recommendations Discharge when medically stable History Interval history: I have seen and examined the patient at the bedside patient's chart and medic ations reviewed Patient complains of mild shortness of breath and some cough COVID 19 positive, isolation precautions and PPE protocol strictly followed Vital signs noted Hospitalist Physical - Constitutional Vitals: Temp Pulse Resp BP Pulse Ox 98.6 F 74 22 126/59 98 11/03/21 18:29 11/03/21 18:29 11/03/21 18:29 11/03/21 18:29 11/03/21 18:29 General appearance: Present: no acute distress, well-nourished - EENT Eyes: Present: PERRL, EOM intact - Neck Neck: Present: supple, normal ROM - Respiratory Respiratory effort: normal Respiratory: bilateral: diminished, rhonchi, negative: rales, wheezing - Cardiovascular Rhythm: regular Heart Sounds: Present: S1 & S2 - Extremities Extremities: no ischemia, No edema - Abdominal General gastrointestinal: soft, non-tender, non-distended, normal bowel sounds - Integumentary Integumentary: Present: clear, warm - Psychiatric Psychiatric: appropriate mood/affect, cooperative - Neurologic Neurologic: CNII-XII intact, moves all extremities HEART Score - HEART Score Troponin: Troponin T < 0.010 ng/mL (0.00-0.029) 10/30/21 11:31 Results - Labs CBC & Chem 7: 10/31/21 04:32 11/03/21 07:16 Labs: Laboratory Last Values WBC 7.9 K/mm3 (4.5-11.0) 10/31/21 04:32 RBC 3.85 M/mm3 (3.65-5.03) 10/31/21 04:32 Hgb 11.1 gm/dl (11.8-15.2) L 10/31/21 04:32 Hct 33.8 % (35.5-45.6) L 10/31/21 04:32 MCV 88 fl (84-94) 10/31/21 04:32 MCH 29 pg (28-32) 10/31/21 04:32 MCHC 33 % (32-34) 10/31/21 04:32 RDW 14.8 % (13.2-15.2) 10/31/21 04:32 Plt Count 265 K/mm3 (140-440) 10/31/21 04:32 Lymph % (Auto) 11.4 % (13.4-35.0) L 10/30/21 11:31 Meagher % (Auto) [employer] 10/31/21 04:32 Eos % (Auto) 2.9 % (0.0-4.3) 10/30/21 11:31 Baso % (Auto) 0.7 % (0.0-1.8) 10/30/21 11:31 Lymph # (Auto) 1.2 K/mm3 (1.2-5.4) 10/30/21 11:31 Meagher # (Auto) 1.3 K/mm3 (0.0-0.8) H 10/30/21 11:31 Eos # (Auto) 0.3 K/mm3 (0.0-0.4) 10/30/21 11:31 Baso # (Auto) 0.1 K/mm3 (0.0-0.1) 10/30/21 11:31 Add Manual Diff Complete 10/31/21 04:32 Total Counted 100 10/31/21 04:32 Seg Neutrophils % 73.1 % (40.0-70.0) H 10/30/21 11:31 Seg Neuts % (Manual) 72.0 % (40.0-70.0) H 10/31/21 04:32 Band Neutrophils % 0 % 10/31/21 04:32 Lymphocytes % (Manual) 15.0 % (13.4-35.0) 10/31/21 04:32 Reactive Lymphs % (Man) 0 % 10/31/21 04:32 Monocytes % (Manual) 12.0 % (0.0-7.3) H 10/31/21 04:32 Eosinophils % (Manual) 1.0 % (0.0-4.3) 10/31/21 04:32 Basophils % (Manual) 0 % (0.0-1.8) 10/31/21 04:32 Metamyelocytes % 0 % 10/31/21 04:32 Myelocytes % 0 % 10/31/21 04:32 Promyelocytes % 0 % 10/31/21 04:32 Blast Cells % 0 % 10/31/21 04:32 Nucleated RBC % Not Reportable 10/31/21 04:32 Seg Neutrophils # 8.0 K/mm3 (1.8-7.7) H 10/30/21 11:31 Seg Neutrophils # Man 5.7 K/mm3 (1.8-7.7) 10/31/21 04:32 Band Neutrophils # 0.0 K/mm3 10/31/21 04:32 Lymphocytes # (Manual) 1.2 K/mm3 (1.2-5.4) 10/31/21 04:32 Abs React Lymphs (Man) 0.0 K/mm3 10/31/21 04:32 Monocytes # (Manual) 0.9 K/mm3 (0.0-0.8) H 10/31/21 04:32 Eosinophils # (Manual) 0.1 K/mm3 (0.0-0.4) 10/31/21 04:32 Basophils # (Manual) 0.0 K/mm3 (0.0-0.1) 10/31/21 04:32 Metamyelocytes # 0.0 K/mm3 10/31/21 04:32 Myelocytes # 0.0 K/mm3 10/31/21 04:32 Promyelocytes # 0.0 K/mm3 10/31/21 04:32 Blast Cells # 0.0 K/mm3 10/31/21 04:32 WBC Morphology Not Reportable 10/31/21 04:32 Hypersegmented Neuts Not Reportable 10/31/21 04:32 Hyposegmented Neuts Not Reportable 10/31/21 04:32 Hypogranular Neuts Not Reportable 10/31/21 04:32 Smudge Cells Not Reportable 10/31/21 04:32 Toxic Granulation Not Reportable 10/31/21 04:32 Toxic Vacuolation Not Reportable 10/31/21 04:32 Dohle Bodies Not Reportable 10/31/21 04:32 Pelger-Huet Anomaly Not Reportable 10/31/21 04:32 Kristian Rods Not Reportable 10/31/21 04:32 Platelet Estimate Consistent w auto 10/31/21 04:32 Clumped Platelets Not Reportable 10/31/21 04:32 Plt Clumps, EDTA Not Reportable 10/31/21 04:32 Large Platelets Not Reportable 10/31/21 04:32 Giant Platelets Not Reportable 10/31/21 04:32 Platelet Satelliting Not Reportable 10/31/21 04:32 Plt Morphology Comment Not Reportable 10/31/21 04:32 RBC Morphology Not Reportable 10/31/21 04:32 Dimorphic RBCs Not Reportable 10/31/21 04:32 Polychromasia Not Reportable 10/31/21 04:32 Hypochromasia Not Reportable 10/31/21 04:32 Poikilocytosis Not Reportable 10/31/21 04:32 Anisocytosis Not Reportable 10/31/21 04:32 Microcytosis Not Reportable 10/31/21 04:32 Macrocytosis Not Reportable 10/31/21 04:32 Spherocytes Not Reportable 10/31/21 04:32 Pappenheimer Bodies Not Reportable 10/31/21 04:32 Sickle Cells Not Reportable 10/31/21 04:32 Target Cells Not Reportable 10/31/21 04:32 Tear Drop Cells Not Reportable 10/31/21 04:32 Ovalocytes Not Reportable 10/31/21 04:32 Helmet Cells Not Reportable 10/31/21 04:32 [place] Bodies Not Reportable 10/31/21 04:32 Crook Rings Not Reportable 10/31/21 04:32 [place] Cells Not Reportable 10/31/21 04:32 Bite Cells Not Reportable 10/31/21 04:32 Crenated Cell Not Reportable 10/31/21 04:32 Elliptocytes Not Reportable 10/31/21 04:32 Acanthocytes (Spur) Not Reportable 10/31/21 04:32 Rouleaux Not Reportable 10/31/21 04:32 Hemoglobin C Crystals Not Reportable 10/31/21 04:32 Schistocytes Not Reportable 10/31/21 04:32 Malaria parasites Not Reportable 10/31/21 04:32 Nic Bodies Not Reportable 10/31/21 04:32 Hem Pathologist Commnt No 10/31/21 04:32 PT 14.0 Sec. (12.2-14.9) 10/30/21 11:31 INR 0.97 (0.87-1.13) 10/30/21 11:31 D-Dimer 1159.97 ng/mlDDU (0-234) H 11/02/21 07:40 Sodium 138 mmol/L (137-145) 11/03/21 07:16 Potassium 4.6 mmol/L (3.6-5.0) 11/03/21 07:16 Chloride 103.1 mmol/L (98-107) 11/03/21 07:16 Carbon Dioxide 24 mmol/L (22-30) 11/03/21 07:16 Anion Gap 16 mmol/L 11/03/21 07:16 BUN 13 mg/dL (9-20) 11/03/21 07:16 Creatinine 0.7 mg/dL (0.8-1.3) L 11/03/21 07:16 Estimated GFR > 60 ml/min 11/03/21 07:16 BUN/Creatinine Ratio 19 % 11/03/21 07:16 Glucose 145 mg/dL (75-100) H 11/03/21 07:16 POC Glucose 272 mg/dL (70-105) H 11/03/21 16:21 Lactic Acid 0.90 mmol/L (0.7-2.0) 10/30/21 14:43 Calcium 8.4 mg/dL (8.4-10.2) 11/03/21 07:16 Ferritin 538.6 ng/mL (30.0-300.0) H 11/02/21 07:10 Total Bilirubin 0.20 mg/dL (0.1-1.2) 11/03/21 07:16 AST 31 units/L (5-40) 11/03/21 07:16 ALT 56 units/L (7-56) 11/03/21 07:16 Alkaline Phosphatase 159 units/L (35-129) H 11/03/21 07:16 Ammonia 21.0 umol/L (25-60) L 10/30/21 21:49 Lactate Dehydrogenase 210 units/L (91-180) H 11/02/21 07:10 Total Creatine Kinase 72 units/L (55-170) 10/30/21 11:31 CK-MB (CK-2) < 1.0 ng/mL (0.0-4.0) 10/30/21 11:31 CK-MB (CK-2) Rel Index 1.3 (0-4) 10/30/21 11:31 Troponin T < 0.010 ng/mL (0.00-0.029) 10/30/21 11:31 C-Reactive Protein 16.90 mg/dL (0.00-1.30) H 11/02/21 07:10 Total Protein 6.6 g/dL (6.3-8.2) 11/03/21 07:16 Albumin 3.3 g/dL (3.9-5) L 11/03/21 07:16 Albumin/Globulin Ratio 1.0 % 11/03/21 07:16 Urine Color Yellow (Yellow) 10/30/21 11:18 Urine Turbidity Clear (Clear) 10/30/21 11:18 Urine pH 6.0 (5.0-7.0) 10/30/21 11:18 Ur Specific [place] 1.015 (1.003-1.030) 10/30/21 11:18 Urine Protein 30 mg/dl mg/dL (Negative) 10/30/21 11:18 Urine Glucose (UA) Negative mg/dL (Negative) 10/30/21 11:18 Urine Ketones Negative mg/dL (Negative) 10/30/21 11:18 Urine Blood 1+ (Negative) 10/30/21 11:18 Urine Nitrite 1+ (Negative) 10/30/21 11:18 Ur Reducing Substances Not Reportable 10/30/21 11:18 Urine Bilirubin 1+ (Negative) 10/30/21 11:18 Urine Ictotest Negative (Negative) 10/30/21 11:18 Urine Urobilinogen 0.0 mg/dL (<2.0) 10/30/21 11:18 Ur Leukocyte Esterase Negative (Negative) 10/30/21 11:18 Urine WBC (Auto) 11.0 /HPF (0.0-6.0) H 10/30/21 11:18 Urine RBC (Auto) 2.0 /HPF (0.0-6.0) 10/30/21 11:18 U Epithel Cells (Auto) 3.0 /HPF (0-13.0) 10/30/21 11:18 Urine Mucus Few /HPF 10/30/21 11:18 Vancomycin Trough 11.1 ug/mL (5.0-20.0) 11/02/21 17:04 Coronavirus (PCR) Positive (Negative) A 11/01/21 09:20 Microbiology: Microbiology 10/30/21 14:49 Peripheral/Venous Blood Culture - Preliminary NO GROWTH AFTER 4 DAYS 10/30/21 14:43 Peripheral/Venous Blood Culture - Preliminary NO GROWTH AFTER 4 DAYS 11/01/21 09:36 Sputum - Expectorated Sputum Sputum Culture - Preliminary Pseudomonas Aeruginosa Cruz/IV: Voiding Method Urinal Active Medications - Current Medications Current Medications: Generic Name Dose Route Start Last Admin Trade Name Freq PRN Reason Stop Dose Admin Acetaminophen 650 mg 10/30/21 21:31 Acetaminophen 325 Mg Tab PO Q4H PRN Pain MILD(1-3)/Fever >100.5/MCDERMOTT Albuterol 2 puff 11/02/21 08:00 Albuterol 8.5 Gm Mdi Inhalation IH Q6HRT PRN Shortness Of Breath Albuterol/Ipratropium 1 ampul 11/02/21 14:00 11/03/21 14:25 Ipratropium/Albuterol Sulfate 3 Ml Ampul.Neb IH 1 ampul TIDRT JAYLA Administration Arformoterol Tartrate 15 mcg 11/01/21 20:00 11/03/21 08:53 Arformoterol 15 Mcg/2 Ml Nebu IH 15 mcg Q12HRT JAYLA Administration Budesonide 0.5 mg 11/01/21 20:00 11/03/21 08:53 Budesonide 0.5 Mg/2 Ml Nebu IH 0.5 mg Q12HRT JAYLA Administration Dexamethasone 6 mg 11/02/21 11:00 11/03/21 10:33 Dexamethasone 4 Mg/Ml Vial IV 11/10/21 10:01 6 mg DAILY JAYLA Administration Famotidine 20 mg 10/30/21 22:00 11/03/21 10:33 Famotidine 20 Mg Tab PO 20 mg BID JAYLA Administration Fluticasone Propionate 100 mcg 11/01/21 14:56 11/01/21 18:13 Fluticasone Propionate Nasal [place] 16 Gm NS 100 mcg QDAY PRN Administration Congestion Heparin Sodium (Porcine) 5,000 unit 10/30/21 22:00 11/03/21 10:34 Heparin 5,000 Unit/1 Ml Vial SUB-Q 5,000 unit Q12HR JAYLA Administration Cefepime HCl 2 gm in 100 mls @ 200 mls/hr 10/31/21 11:00 11/03/21 10:33 Cefepime/Ns 2 Gm/100 Ml IV 200 mls/hr Q12HR JAYLA Administration Protocol Vancomycin HCl 1,250 mg/ 275 mls @ 166.667 mls/hr 11/01/21 06:00 11/03/21 06:08 Sodium Chloride IV 166.667 mls/hr Q12H JAYLA Administration Remdesivir 100 mg/ Sodium 250 mls @ 500 mls/hr 11/02/21 14:00 11/03/21 15:45 Chloride IV 11/05/21 14:29 500 mls/hr Q24HR@1400 JAYLA Administration Insulin Human Lispro 0 unit 11/02/21 22:00 11/03/21 16:26 Insulin Lispro 100 Unit/Ml SUB-Q 2 unit ACHS JAYLA Administration Protocol Morphine Sulfate 2 mg 10/30/21 21:33 10/30/21 22:20 Morphine 2 Mg/1 Ml Inj IV 2 mg Q4H PRN Administration Pain, Moderate (4-6) Multivitamins 1 each 11/03/21 12:00 11/03/21 15:44 Multivitamins ,Therapeutic Tab PO 1 each QDAY JAYLA Administration Ondansetron HCl 4 mg 10/30/21 21:31 Ondansetron 4 Mg/2 Ml Inj IV Q8H PRN Nausea And Vomiting Oxycodone/Acetaminophen 1 tab 10/30/21 21:33 11/03/21 00:57 Oxycodone /Acetaminophen 5-325mg Tab PO 1 tab Q6H PRN Administration Pain, Moderate (4-6) Pseudoephedrine/Acetam/Chlorphenir 10 ml 11/01/21 14:56 11/03/21 10:32 Guaifenesin/Codeine 100-10mg Oral Liqd 5 Ml PO 10 ml Q4H PRN Administration Cough Sodium Chloride 10 ml 10/30/21 22:00 11/03/21 10:34 Sodium Chloride 0.9% 10 Ml Flush Syringe IV 10 ml BID JAYLA Administration Sodium Chloride 10 ml 10/30/21 21:31 Sodium Chloride 0.9% 10 Ml Flush Syringe IV PRN PRN LINE FLUSH Zolpidem Tartrate 5 mg 11/03/21 21:00 Zolpidem 5 Mg Tab PO QHS PRN Sleep Nutrition/Malnutrition Assess - Dietary Evaluation Nutrition/Malnutrition Findings: Nutrition Notes Start: 10/31/21 13:18 Freq: Status: Active Protocol: Document 10/31/21 13:18 SALENA (Rec: 10/31/21 13:38 SALENA [id number]) Nutrition Notes 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 Current Diet Regular Diet (since B 10/31). Labs/Tests 10/31: Na 136, Glu 123. Pertinent Medications 10/31: Nutritionally unremarkable. 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 Weight Status Appropriate Subjective/Other Information RD consult for skin risk and risk of malnutrition assessments. Pt is on PO diet, No reports on Pt's PO intake of meals at the time, will assess at F/U. Pt is on Nasal Cannula, O2 saturation @ 98%, according to Physical Assessment History notes. Pt shows no signs of concern for skin risk at the time, according to Physical Assessment History notes. Pt shous no signs of concern for risk of malnutrition at the time, according to Physical Assessment History notes. Percent of energy/protein needs met: Prescribed Regular Diet provides for energy/protein needs (2,289 Kcal/89 g) during LOS. Burn Absent Trauma Absent GI Symptoms None Food Allergy No Skin Integrity/Comment Assessment WNL. 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 No Is Patient Ambulatory and/or Out of Bed Yes REE-([facility]-ambulatory/OOB) [ 2034.669 [id number]] Calculation Used for Recommendations [facility] Additional Notes Protein: 08-1 g/Kg ABW; 59-74 g/day. Fluids: 1 ml/Kcal, or as per MD. Nutrition Intervention Change Diet Order: Continue Regular Diet as tolerated. Follow-Up By: 11/07/21 Additional Comments Continue monitoring food tolerance, %PO intake of meals , and BM.
[2021-11-03] MEDS: ZOLPIDEM 5 MG TAB PO PRN (21:51)
[2021-11-04] MEDS: oxyCODONE /ACETAMINOPHEN 5-325MG TAB PO PRN ×2 (00:38→22:06)
[2021-11-04] MEDS: VANCOMYCIN 1,250 MG in SODIUM CHLORIDE 0.9% 250ML 250 ML IV SCH (05:46)
[2021-11-04 06:32] LABS: Alanine Aminotransferase 51 units/L (7-56); Albumin 3.4 g/dL (3.9-5); BUN/Creatinine Ratio 16; Blood Urea Nitrogen 13 mg/dL (9-20); Calcium 8.6 mg/dL (8.4-10.2); Hemolysis Index 0
[2021-11-04 06:50] LABS: C-Reactive Protein 4.7 mg/dL (0.00-1.30)
[2021-11-04] MEDS: INSULIN LISPRO 100 UNIT/ML SUB-Q SCH ×4 (07:30→21:50)
[2021-11-04] MEDS: IPRATROPIUM/ALBUTEROL SULFATE 3 ML AMPUL.NEB IH SCH ×3 (08:00→20:39)
[2021-11-04] MEDS: BUDESONIDE 0.5 MG/2 ML NEBU IH SCH ×2 (08:00→20:39)
[2021-11-04] MEDS: ARFORMOTEROL 15 MCG/2 ML NEBU IH SCH ×2 (08:00→20:39)
--- NOTE | 2021-11-04 09:40 | Progress Note ---
Assessment and Plan -COVID-19 positive; 11/01/2021 Patient's kebede PCR test came back + 11/02/2019 Isolation precautions PPE protocols followed Inflammatory markers, dexamethasone Hypoxia; patient is on 3 L of nasal cannula oxygen Candidate for dexamethasone for 10 days, remdesivir for 5 days Wean oxygen as tolerated Home O2 evaluation prior to discharge Isolation precautions and PPE protocols per CDC guidelines ID already following - Bilateral pneumonia/community-acquired POA Patient initiated on IV Zithromax and IV Rocephin Patient has bilateral cavitary lesions ID pulmonary evaluated the patient Patient is placed in airborne isolation AFB cultures, AFB smears, gold interferon Test pending, follow cultures --Pulmonary cavitary lesion TB and other fungal diseases to be ruled out Patient also has fever, ID following Airborne isolation, follow AFB testing --COPD (chronic obstructive pulmonary disease) DuoNebs [id number] and as needed --CAD (coronary artery disease) Continue aspirin and statins --GERD (gastroesophageal reflux disease) Continue PPIs --DVT prophylaxis On heparin and GI prophylaxis -- Advance care planning Disease education collected, care plan discussed, diagnosis discussed close. Patient acknowledged understanding with care plan. +30 minutes. Patient is full code. 11/01/2021; patient feels slightly better still has chest congestion and cough Patient is already on cefepime recommended by ID Follow cultures, follow AFB studies reports, follow kebede PCR test 11/02; continue current management, follow pending AFB tests Closely monitor the patient and adjust management as needed Plan of care reviewed with the patient and his nurse 11/03, continue current management Follow consultants and recommendations Discharge when medically stable 11/04: cont remdesivir and dexamethasone, follow covid protocol Subjective Date of service: 11/04/21 Interval history: I have seen and examined the patient at the bedside patient's chart and medicati ons reviewed Patient complains of mild shortness of breath and some cough COVID 19 positive, isolation precautions and PPE protocol strictly followed Vital signs noted Objective - Exam Narrative Exam: General appearance: Present: no acute distress, well-nourished - EENT Eyes: Present: PERRL, EOM intact - Neck Neck: Present: supple, normal ROM - Respiratory Respiratory effort: normal Respiratory: bilateral: diminished, rhonchi, negative: rales, wheezing - Cardiovascular Rhythm: regular Heart Sounds: Present: S1 & S2 - Extremities Extremities: no ischemia, No edema - Abdominal General gastrointestinal: soft, non-tender, non-distended, normal bowel sounds - Integumentary Integumentary: Present: clear, warm - Psychiatric Psychiatric: appropriate mood/affect, cooperative - Neurologic Neurologic: CNII-XII intact, moves all extremities - Constitutional Vitals: Vital Signs - 12hr 11/04/21 11/04/21 05:19 08:00 Temperature 98.7 F Pulse Rate 59 L Pulse Rate [ 74 Bilateral] Respiratory 18 Rate Respiratory 18 Rate [Bilateral ] Blood Pressure 113/63 O2 Sat by Pulse 98 Oximetry - Labs CBC & Chem 7: 10/31/21 04:32 11/04/21 05:45 Labs: Abnormal lab results 11/02/21 11/03/21 11/03/21 Range/Units 07:10 12:14 16:21 D-Dimer (0-234) ng/mlDDU Glucose (75-100) mg/dL POC Glucose 133 H 272 H (70-105) mg/dL Ferritin (30.0-300.0) ng/mL Alkaline Phosphatase (35-129) units/L Lactate Dehydrogenase 210 H (91-180) units/L C-Reactive Protein 16.90 H (0.00-1.30) mg/dL Albumin (3.9-5) g/dL 11/03/21 11/04/21 11/04/21 Range/Units 21:25 04:00 04:00 D-Dimer 920.82 H (0-234) ng/mlDDU Glucose (75-100) mg/dL POC Glucose 265 H (70-105) mg/dL Ferritin 351.5 H (30.0-300.0) ng/mL Alkaline Phosphatase (35-129) units/L Lactate Dehydrogenase (91-180) units/L C-Reactive Protein (0.00-1.30) mg/dL Albumin (3.9-5) g/dL 11/04/21 11/04/21 11/04/21 Range/Units 05:45 05:45 08:17 D-Dimer (0-234) ng/mlDDU Glucose 169 H (75-100) mg/dL POC Glucose 125 H (70-105) mg/dL Ferritin (30.0-300.0) ng/mL Alkaline Phosphatase 145 H (35-129) units/L Lactate Dehydrogenase 186 H (91-180) units/L C-Reactive Protein 4.70 H (0.00-1.30) mg/dL Albumin 3.4 L (3.9-5) g/dL HEART Score - HEART Score Troponin: Troponin T < 0.010 ng/mL (0.00-0.029) 10/30/21 11:31
[2021-11-04] MEDS: HEPARIN 5,000 UNIT/1 ML VIAL SUB-Q SCH ×2 (09:47→21:50)
[2021-11-04] MEDS: CEFEPIME/NS 2 GM/100 ML 2 GM/100 ML BAG IV SCH ×2 (09:47→21:51)
[2021-11-04] MEDS: dexAMETHasone 4 MG/ML VIAL IV SCH (09:48)
[2021-11-04] MEDS: FAMOTIDINE 20 MG TAB PO SCH ×2 (09:48→21:53)
[2021-11-04] MEDS: MULTIVITAMINS ,THERAPEUTIC TAB PO SCH (09:48)
[2021-11-04] MEDS: guaiFENesin/CODEINE 100-10MG ORAL LIQD 5 ML PO PRN ×2 (10:39→22:06)
--- NOTE | 2021-11-04 11:05 | Progress Note ---
Assessment and Plan Cultures: 10/30/2021 blood culture: No growth 11/01/2021 sputum culture: Pseudomonas (FQ resistant) 11/01/2021 COVID-19 PCR: Positive A/P: 61-year-old male with COPD, diabetes, GERD, chronic respiratory failure r equiring home oxygen was admitted to the hospital with complaints of fever and cough going on for about 2 days: #Bilateral upper lobe cavitary pneumonia: Reviewed outside records from [place]. Agree with Dr. 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 He should follow up with his physicians at [place] and [place] including Dr. Ibarra who is an expert in bronchiectasis. In my opinion, given his significant structural lung disease and chronic colonization, eradiation of Pseudomonas is going to be very difficult and unlikely. Mainstay will be secretion clearance techniques to help reduce bioburden and help manage his symptoms. He is currently not septic, appears to be clinically stable. Continue to treat for COVID-19 and COPD. #COPD with chronic respiratory failure, on home oxygen Recs: -Reviewed outside records from [place]. Agree with Dr. 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 He should follow up with his physicians at [place] and [place] including Dr. Ibarra who is an expert in bronchiectasis. In my opinion, given his significant structural lung disease and chronic colonization, eradiation of Pseudomonas is going to be very difficult and unlikely. Mainstay will be secretion clearance techniques to help reduce bioburden and help manage his symptoms. He is currently not septic, appears to be clinically stable. Continue to treat for COVID-19 and COPD. -Continue cefepime D5 of 7 -Continue IV Remdesivir for 5 days -Continue Decadron -CRP improving -TB isolation not required. Continue isolation for COVID-19 Will sign off. Please call with questions. Glenn Matson MD, FACP, [facility] ([facility]) O: [phone] F: [phone] C: [phone] Subjective Date of service: 11/04/21 Interval history: Afebrile. Remains stable on oxygen by [place]. Objective - Exam Narrative Exam: Physical Exam: deferred, minimize risk of transmission of COVID-19 - Constitutional Vitals: Vital Signs Temp Pulse Resp BP Pulse Ox 98.7 F 74 18 113/63 98 11/04/21 05:19 11/04/21 08:00 11/04/21 08:00 11/04/21 05:19 11/04/21 05:19 Temperature -Last 24 Hours Temperature 98.7 F Temperature 98.2 F Temperature 98.6 F Temperature 98.9 F - Labs CBC & Chem 7: 10/31/21 04:32 11/04/21 05:45 Labs: Abnormal lab results 11/02/21 11/03/21 11/03/21 Range/Units 07:10 12:14 16:21 D-Dimer (0-234) ng/mlDDU Glucose (75-100) mg/dL POC Glucose 133 H 272 H (70-105) mg/dL Ferritin (30.0-300.0) ng/mL Alkaline Phosphatase (35-129) units/L Lactate Dehydrogenase 210 H (91-180) units/L C-Reactive Protein 16.90 H (0.00-1.30) mg/dL Albumin (3.9-5) g/dL 11/03/21 11/04/21 11/04/21 Range/Units 21:25 04:00 04:00 D-Dimer 920.82 H (0-234) ng/mlDDU Glucose (75-100) mg/dL POC Glucose 265 H (70-105) mg/dL Ferritin 351.5 H (30.0-300.0) ng/mL Alkaline Phosphatase (35-129) units/L Lactate Dehydrogenase (91-180) units/L C-Reactive Protein (0.00-1.30) mg/dL Albumin (3.9-5) g/dL 11/04/21 11/04/21 11/04/21 Range/Units 05:45 05:45 08:17 D-Dimer (0-234) ng/mlDDU Glucose 169 H (75-100) mg/dL POC Glucose 125 H (70-105) mg/dL Ferritin (30.0-300.0) ng/mL Alkaline Phosphatase 145 H (35-129) units/L Lactate Dehydrogenase 186 H (91-180) units/L C-Reactive Protein 4.70 H (0.00-1.30) mg/dL Albumin 3.4 L (3.9-5) g/dL
[2021-11-04] MEDS: SODIUM CHLORIDE 0.9% 50 ML IVPB IV SCH (15:02)
[2021-11-04] MEDS: REMDESIVIR 100 MG in SODIUM CHLORIDE 0.9% 250ML 250 ML IV SCH (15:02)
[2021-11-04] MEDS: ZOLPIDEM 5 MG TAB PO PRN (22:06)
[2021-11-05] MEDS: INSULIN LISPRO 100 UNIT/ML SUB-Q SCH ×4 (08:26→21:35)
[2021-11-05] MEDS: ARFORMOTEROL 15 MCG/2 ML NEBU IH SCH ×2 (08:36→20:09)
[2021-11-05] MEDS: IPRATROPIUM/ALBUTEROL SULFATE 3 ML AMPUL.NEB IH SCH ×3 (08:37→20:09)
[2021-11-05] MEDS: BUDESONIDE 0.5 MG/2 ML NEBU IH SCH ×2 (08:37→20:09)
[2021-11-05] MEDS: MULTIVITAMINS ,THERAPEUTIC TAB PO SCH (09:54)
[2021-11-05] MEDS: dexAMETHasone 4 MG/ML VIAL IV SCH (09:54)
[2021-11-05] MEDS: FAMOTIDINE 20 MG TAB PO SCH ×2 (09:54→21:34)
[2021-11-05] MEDS: HEPARIN 5,000 UNIT/1 ML VIAL SUB-Q SCH ×2 (09:54→21:33)
[2021-11-05] MEDS: guaiFENesin/CODEINE 100-10MG ORAL LIQD 5 ML PO PRN ×2 (10:06→21:32)
--- NOTE | 2021-11-05 10:59 | Progress Note ---
Assessment and Plan Cultures: 10/30/2021 blood culture: No growth 11/01/2021 sputum culture: Pseudomonas (FQ resistant) 11/01/2021 COVID-19 PCR: Positive A/P: 61-year-old male with COPD, diabetes, GERD, chronic respiratory failure r equiring home oxygen was admitted to the hospital with complaints of fever and cough going on for about 2 days: #Bilateral upper lobe cavitary pneumonia: Reviewed outside records from [facility]. Agree with Dr. 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 He should follow up with his physicians at [facility] and [facility] including Dr. Ibarra who is an expert in bronchiectasis. In my opinion, given his significant structural lung disease and chronic colonization, eradiation of Pseudomonas is going to be very difficult and unlikely. Mainstay will be secretion clearance techniques to help reduce bioburden and help manage his symptoms. He is currently not septic, appears to be clinically stable. Continue to treat for COVID-19 and COPD. #COPD with chronic respiratory failure, on home oxygen Recs: -Reviewed outside records from [facility]. Agree with Dr. 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 He should follow up with his physicians at [facility] and [facility] including Dr. Ibarra who is an expert in bronchiectasis. In my opinion, given his significant structural lung disease and chronic colonization, eradiation of Pseudomonas is going to be very difficult and unlikely. Mainstay will be secretion clearance techniques to help reduce bioburden and help manage his symptoms. He is currently not septic, appears to be clinically stable. Continue to treat for COVID-19 and COPD. -Continue cefepime D6 of 7 -Continue IV Remdesivir for 5 days -Continue Decadron x 10 days Will sign off. Please call with questions. Glenn Matson MD, FACP, [facility] ([facility]) O: [phone] F: [phone] C: [phone] Subjective Date of service: 11/05/21 Interval history: Afebrile. Remains stable on oxygen by PR. Complains of abdominal pain while coughing. Had a BM yesterday. Objective - Exam Narrative Exam: Physical Exam: Constitutional: Alert, cooperative. No acute distress Head, Ears, Nose: Normocephalic, atraumatic. External ears, nose normal Eyes: Conjunctivae/corneas clear. No icterus. No ptosis. Neck: Supple, no meningeal signs Cardiovascular: S1, S2 + Respiratory: AE fair b/l GI: Soft, non-tender; bowel sounds +. No peritoneal signs Musculoskeletal: No pedal edema, no cyanosis. Skin: No rash or abscess Hem/Lymphatic: No palpable cervical or supraclavicular nodes. No lymphangitis Psych: Mood ok. Affect normal Neurological: Awake, alert, oriented. No gross abnormality - Constitutional Vitals: Vital Signs Temp Pulse Resp BP Pulse Ox 98.5 F 72 18 135/85 97 11/05/21 05:00 11/05/21 08:37 11/05/21 08:37 11/05/21 05:00 11/05/21 08:41 Temperature -Last 24 Hours Temperature 98.5 F Temperature 97.6 F Temperature 98.5 F - Labs CBC & Chem 7: 10/31/21 04:32 11/04/21 05:45 Labs: Abnormal lab results 11/04/21 11/04/21 11/04/21 Range/Units 12:03 16:48 21:33 POC Glucose 136 H 254 H 251 H (70-105) mg/dL
[2021-11-05] MEDS: CEFEPIME/NS 2 GM/100 ML 2 GM/100 ML BAG IV SCH ×2 (11:57→21:32)
[2021-11-05] MEDS: REMDESIVIR 100 MG in SODIUM CHLORIDE 0.9% 250ML 250 ML IV SCH (13:34)
[2021-11-05] MEDS: SODIUM CHLORIDE 0.9% 50 ML IVPB IV SCH (15:17)
--- NOTE | 2021-11-05 15:46 | Progress Note ---
Assessment and Plan -COVID-19 positive; 11/01/2021 Patient's kebede PCR test came back + 11/02/2019 Isolation precautions PPE protocols followed Inflammatory markers, dexamethasone Hypoxia; patient is on 3 L of nasal cannula oxygen Candidate for dexamethasone for 10 days, remdesivir for 5 days Wean oxygen as tolerated Home O2 evaluation prior to discharge Isolation precautions and PPE protocols per CDC guidelines ID already following - Bilateral pneumonia/community-acquired POA Patient initiated on IV Zithromax and IV Rocephin Patient has bilateral cavitary lesions ID pulmonary evaluated the patient Patient is placed in airborne isolation AFB cultures, AFB smears, gold interferon Test pending, follow cultures --Pulmonary cavitary lesion TB and other fungal diseases to be ruled out Patient also has fever, ID following Airborne isolation, follow AFB testing --COPD (chronic obstructive pulmonary disease) DuoNebs [id number] and as needed --CAD (coronary artery disease) Continue aspirin and statins --GERD (gastroesophageal reflux disease) Continue PPIs --DVT prophylaxis On heparin and GI prophylaxis -- Advance care planning Disease education collected, care plan discussed, diagnosis discussed close. Patient acknowledged understanding with care plan. +30 minutes. Patient is full code. 11/01; patient feels slightly better still has chest congestion and cough, Patient is already on cefepime recommended by ID. Follow cultures, follow AFB studies reports, follow kebede PCR test. 11/02; continue current management, follow pending AFB tests. Closely monitor the patient and adjust management as needed. Plan of care reviewed with the patient and his nurse. 11/03, continue current management. Follow consultants and recommendations. Discharge when medically stable. 11/04: cont remdesivir and dexamethasone, follow covid protocol. 11/05: Continue cefepime D6 of 7, Continue IV Remdesivir for 5 days. Continue Decadron x 10 days Subjective Date of service: 11/05/21 Objective - Constitutional Vitals: Vital Signs - 12hr 11/05/21 11/05/21 11/05/21 05:00 08:37 08:41 Temperature 98.5 F Pulse Rate 79 Pulse Rate [ 72 Bilateral] Respiratory 20 Rate Respiratory 18 Rate [Bilateral ] Blood Pressure 135/85 O2 Sat by Pulse 98 97 Oximetry - Labs CBC & Chem 7: 10/31/21 04:32 11/04/21 05:45 Labs: Abnormal lab results 11/04/21 11/04/21 Range/Units 16:48 21:33 POC Glucose 254 H 251 H (70-105) mg/dL HEART Score - HEART Score Troponin: Troponin T < 0.010 ng/mL (0.00-0.029) 10/30/21 11:31
[2021-11-05] MEDS ORDERED: ZOLPIDEM 5 MG TAB PO PRN (21:00)
[2021-11-06 07:27] LABS: BUN/Creatinine Ratio 17; Blood Urea Nitrogen 12 mg/dL (9-20); Calcium 8.8 mg/dL (8.4-10.2); Hemolysis Index 0
[2021-11-06] MEDS: INSULIN LISPRO 100 UNIT/ML SUB-Q SCH ×2 (08:53→12:14)
[2021-11-06] MEDS: ARFORMOTEROL 15 MCG/2 ML NEBU IH SCH (08:57)
[2021-11-06] MEDS: IPRATROPIUM/ALBUTEROL SULFATE 3 ML AMPUL.NEB IH SCH ×2 (09:01→14:50)
[2021-11-06] MEDS: BUDESONIDE 0.5 MG/2 ML NEBU IH SCH (09:01)
[2021-11-06] MEDS ORDERED: DEXAMETHASONE 4 MG TAB PO SCH (10:00)
[2021-11-06] MEDS: CEFEPIME/NS 2 GM/100 ML 2 GM/100 ML BAG IV SCH (11:09)
--- NOTE | 2021-11-06 11:09 | Discharge Summary ---
Providers - Providers Date of Admission: 10/30/21 21:31 Date of discharge: 11/06/21 Attending physician: ILENE ARNOLD 10/30/21 21:36 Consult to Physician [CONS] Routine Comment: Consulting Provider: RANDY ALVARADO Physician Instructions: Reason For Exam: Bilateral cavitary lesions Primary care physician: SPEARER Hospitalization Condition: Stable Disposition: [address] [place] [address] Final Discharge Diagnosis (Prints w/discharge instructions): --B/L PNA with cavitary lesion. --COVID 19 positive. -- Acute hypoxic respiratory failure Time spent for discharge: 34 minutes Core Measure Documentation - Palliative Care Palliative Care/ Comfort Measures: Not Applicable - Core Measures Any of the following diagnoses?: none Exam - Physical Exam Narrative exam: General appearance: Present: no acute distress, well-nourished - EENT Eyes: Present: PERRL, EOM intact - Neck Neck: Present: supple, normal ROM - Respiratory Respiratory effort: normal Respiratory: bilateral: diminished, rhonchi, negative: rales, wheezing - Cardiovascular Rhythm: regular Heart Sounds: Present: S1 & S2 - Extremities Extremities: no ischemia, No edema - Abdominal General gastrointestinal: soft, non-tender, non-distended, normal bowel sounds - Integumentary Integumentary: Present: clear, warm - Psychiatric Psychiatric: appropriate mood/affect, cooperative - Neurologic Neurologic: CNII-XII intact, moves all extremities - Constitutional Vitals: Temp Pulse Resp BP Pulse Ox 98.6 F 86 18 142/66 91 11/06/21 03:43 11/06/21 03:48 11/06/21 03:48 11/06/21 03:43 11/06/21 03:48 Plan Activity: advance as tolerated Weight Bearing Status: Weight Bear as Tolerated Diet: low fat, low salt Follow up with: PRIMARY CARE, [Primary Care Provider] - 3-5 Days Prescriptions: Zolpidem [Ambien] 10 mg PO QHS PRN #14 tablet PRN Reason: Sleep dexAMETHasone [Decadron] 6 mg PO DAILY #7 tablet oxyCODONE /ACETAMINOPHEN [Percocet 5/325 mg] 1 tab PO Q6H PRN #14 tablet PRN Reason: Pain, Moderate (4-6)
[2021-11-06] MEDS: MULTIVITAMINS ,THERAPEUTIC TAB PO SCH (11:11)
[2021-11-06] MEDS: HEPARIN 5,000 UNIT/1 ML VIAL SUB-Q SCH (11:13)
[2021-11-06] MEDS: FAMOTIDINE 20 MG TAB PO SCH (11:14)
[2021-11-06 13:52] VITALS: BP 111/67
== END 2021-11-06 17:00 | DRG 177 ==
LOC: ED 10:13 → 3A 21:31
PROVIDERS: ADMIT Internal Medicine; ATTEND Internal Medicine
PROC: XW033E5 Introduction of Remdesivir Anti-infective into Peripheral Vein, Percutaneous Approach, New Technology Group 5 (ICD-10-PCS; principal; 2021-11-01)
DX: U07.1 COVID-19 (principal); J96.21 Acute and chronic respiratory failure with hypoxia; J44.0 Chronic obstructive pulmonary disease with (acute) lower respiratory infection; J15.1 Pneumonia due to Pseudomonas; K21.9 Gastro-esophageal reflux disease without esophagitis; I25.10 Atherosclerotic heart disease of native coronary artery without angina pectoris; J98.4 Other disorders of lung; E11.9 Type 2 diabetes mellitus without complications; I25.2 Old myocardial infarction; Z87.891 Personal history of nicotine dependence
CPT/HCPCS: 36415; 71045; 71250; 80048; 80053; 80202; 81001; 82140; 82550; 82553; 82728; 82962; 83615; 84484; 85007; 85025; 85379; 85610; 86140; 87040; 87070; 87076; 87086; 87186; 87205; 93005; 94640; 94760; G0378; J3490; Q9967; J0456; J0692; J0696; J1100; J1644; J1815; J2270; J3370; J7040; J7042; J7050; J8540; U0003